=== PATIENT | male | born 1940 | race Two or more races ===

== ENCOUNTER 2017-01-14 11:58 | Emergency (ER) | payer MEDICARE, OTHER ==
[2017-01-14] MEDS ORDERED: Sodium Chloride 0.9% 10 ML Syringe FLUSH PRN (12:02)
[2017-01-14] MEDS ORDERED: Sodium Chloride 0.9% 1,000 ML IV ONE (12:02)
[2017-01-14] MEDS ORDERED: Famotidine 20 MG/2 ML SDV IVPUSH ONE (12:02)
[2017-01-14] MEDS ORDERED: Aspirin 81 MG Tab.Chew PO ONE (12:02)
[2017-01-14] MEDS ORDERED: Sodium Chloride 0.9% 2.5 ML Syringe FLUSH PRN (12:02)
[2017-01-14] MEDS ORDERED: Nitroglycerin 0.4 MG Tab.SL SL PRN (12:06)
[2017-01-14] MEDS ORDERED: Nitroglycerin 0.4 MG Tab.SL ONE (12:19)
[2017-01-14] MEDS ORDERED: Ketorolac 30 MG/ML SDV IVPUSH ONE (12:47)
[2017-01-14 12:51] LABS: CHLORIDE,CL 96 mmol/L (98-110); SODIUM,NA 135 mmol/L (136-146)
--- NOTE | 2017-01-14 12:56 | EDM.PDOC ---
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 Past medical history: As per history of present illness and as reviewed below otherwise noncontributory. Surgical history: As per history of present illness and as reviewed below otherwise noncontributory. Social history: No reported history of drug or alcohol abuse. Family history: As per history of present illness and as reviewed below otherwise noncontributory. Physical exam: Alert and oriented answering questions appropriately HEENT: Atraumatic, normocehpalic, pupils reactive, negative for conjunctival pallor or scleral icterus, mucous membranes moist, throat clear, neck supple, nontender, trachea midline. Lungs: Clear to auscultation, breath sounds equal bilaterally, chest non tender. Heart: S1S2, regular, negative for clicks, rubs, or JVD. EKG normal sinus rhythm some ischemia Abdomen: Soft, nondistended, nontender. Negative for masses or hepatossplenmegaly. Negative for costovertebral tenderness. Pelvis: Stable nontender. Genitourinary: Deferred. Rectal: Deferred Extremities: Atraumatic, negative for cords or calf pain. Positive for pain to the left neck area extending town to posterior shoulder, tender with palpation and relates area of pain Neurovascular unremarkable. Neuro: Awake, alert, oriented. Cranial nerves II through XII unremarkable. Cerebellum unremarkable. Motor and sensory unremarkable throughout. Exam nonfocal. Diagnostics: [] Therapeutics: [] Impression: [Torticollis] Plan: []Home May use a towel roll to his neck while he is sleeping or resting Flexeril prescription [id number] anti-inflammatories such as Advil or Aleve Definitive disposition and diagnosis as appropriate pending reevaluation and review of above. Onset: Today, Sudden Duration: Hour(s): - Related Data Allergies Allergy/AdvReac Type Severity Reaction Status Date / Time No Known Allergies Allergy Verified 01/14/17 12:45 ED ROS GENERAL - Review of Systems Review Of Systems: ROS reveals no pertinent complaints other than HPI. ED EXAM, GENERAL - Physical Exam Exam: See Below (see dictation) Course - Vital Signs Last Recorded V/S: Last Vital Signs Temp Pulse 72 01/14/17 12:30 Resp 20 01/14/17 12:30 BP 101/43 L 01/14/17 12:30 Pulse Ox 100 01/14/17 12:30 - Orders/Labs/Meds Orders: Active Orders 24 hr Category Date Time Status Cardiac Monitoring [RC] . DIRECTED Care 01/14/17 12:02 Active EKG Documentation Completion [RC] STAT Care 01/14/17 12:03 Active Oxygen Therapy [RC] ASDIRECTED Care 01/14/17 12:02 Active Chest 1V Frontal [CR] Stat Exams 01/14/17 12:02 Taken AMYLASE [CHEM] Stat Lab 01/14/17 12:15 Received COMPREHENSIVE METABOLIC PN,CMP [CHEM] Stat Lab 01/14/17 12:15 Received LIPASE [CHEM] Stat Lab 01/14/17 12:15 Received UA W/MICROSCOPIC [URIN] Stat Lab 01/14/17 12:02 Uncollected Sodium Chloride 0.9% [Normal Saline] 1,000 ml Med 01/14/17 12:02 Active IV .Bolus Sodium Chloride 0.9% [Saline Flush] Med 01/14/17 12:02 Active 10 ml FLUSH ASDIRECTED PRN Sodium Chloride 0.9% [Saline Flush] Med 01/14/17 12:02 Active 2.5 ml FLUSH ASDIRECTED PRN Saline Lock Insert [OM.PC] Stat Oth 01/14/17 12:02 Ordered Medication Orders Sodium Chloride (Normal Saline) 1,000 mls @ 999 mls/hr IV .Bolus ONE Stop: 01/14/17 13:02 Last Admin: 01/14/17 12:23 Dose: 999 mls/hr Sodium Chloride (Saline Flush) 10 ml FLUSH ASDIRECTED PRN PRN Reason: Keep Vein Open Sodium Chloride (Saline Flush) 2.5 ml FLUSH ASDIRECTED PRN PRN Reason: Keep Vein Open Labs: Laboratory Tests 01/14/17 01/14/17 01/14/17 Range/Units 12:15 12:15 12:15 WBC 11.53 H (4.0-11.0) K/uL RBC 3.00 L (4.50-5.90) M/uL Hgb 8.9 L (13.0-17.0) g/dL Hct 27.3 L (38.0-50.0) % MCV 91.0 (80.0-98.0) fL MCH 29.7 (27.0-32.0) pg MCHC 32.6 (31.0-37.0) g/dL RDW Std Deviation 52.3 (28.0-62.0) fl RDW Coeff of Mateus 16 H (11.0-15.0) % Plt Count 187 (150-400) K/uL MPV 9.40 (7.40-12.00) fL Neut % (Auto) 41.1 L (48.0-80.0) % Lymph % (Auto) 10.0 L (16.0-40.0) % [place] % (Auto) 6.2 (0.0-15.0) % Eos % (Auto) 42.4 H (0.0-7.0) % Baso % (Auto) 0.3 (0.0-1.5) % Neut # (Auto) 4.7 (1.4-5.7) K/uL Lymph # (Auto) 1.2 (0.6-2.4) K/uL [place] # (Auto) 0.7 (0.0-0.8) K/uL Eos # (Auto) 4.9 H (0.0-0.7) K/uL Baso # (Auto) 0.0 (0.0-0.1) K/uL Nucleated RBC % 0.0 /100WBC Nucleated RBCs # 0 K/uL INR 1.25 H (0.86-1.11) Troponin I < 0.10 (0.0-0.29) NG/ML Meds: Medications Generic Name Dose Route Start Last Admin Trade Name Freq PRN Reason Stop Dose Admin Sodium Chloride 1,000 mls @ 999 mls/hr 01/14/17 12:02 01/14/17 12:23 Normal Saline IV 01/14/17 13:02 999 mls/hr .Bolus ONE Administration Sodium Chloride 10 ml 01/14/17 12:02 Saline Flush FLUSH ASDIRECTED PRN Keep Vein Open Sodium Chloride 2.5 ml 01/14/17 12:02 Saline Flush FLUSH ASDIRECTED PRN Keep Vein Open Discontinued Medications Generic Name Dose Route Start Last Admin Trade Name Mari PRN Reason Stop Dose Admin Aspirin 324 mg 01/14/17 12:02 01/14/17 12:18 Aspirin PO 01/14/17 12:03 324 mg ONETIME ONE Administration Famotidine 20 mg 01/14/17 12:02 01/14/17 12:23 Pepcid IVPUSH 01/14/17 12:03 20 mg ONETIME ONE Administration Nitroglycerin 0.4 mg 01/14/17 12:06 01/14/17 12:20 Nitrostat SL 01/14/17 12:17 0.4 mg Q5M PRN Administration Chest Pain Nitroglycerin Confirm 01/14/17 12:19 01/14/17 12:28 Nitrostat Administered 01/14/17 12:20 Not Given Dose 0.4 mg .ROUTE .STK-MED ONE Departure - Departure Time of Disposition: 12:49 Disposition: Home, Self-Care 01 Condition: Good Clinical Impression: Torticollis Forms: ED Department Discharge Additional Instructions: The following information is given to patients seen in the emergency department who are being discharged to home. This information is to outline your options for follow-up care. We provide all patients seen in our emergency department with a follow-up referral. The need for follow-up, as well as the timing and circumstances, are variable depending upon the specifics of your emergency department visit. If you don't have a primary care physician on staff, we will provide you with a referral. We always advise you to contact your personal physician following an emergency department visit to inform them of the circumstance of the visit and for follow-up with them and/or the need for any referrals to a consulting specialist. The emergency department will also refer you to a specialist when appropriate. This referral assures that you have the opportunity for followup care with a specialist. All of these measure are taken in an effort to provide you with optimal care, which includes your followup. Under all circumstances we always encourage you to contact your private physician who remains a resource for coordinating your care. When calling for followup care, please make the office aware that this follow-up is from your recent emergency room visit. If for any reason you are refused follow-up, please contact the [facility] emergency department at and asked to speak to the emergency department charge nurse. You have a muscle strain on the left side of your neck were given Norflex and Toradol while in the emergency room to help with pain and relax the muscle tissue Prescriptions written for Diclofenac 75 twice a day 7 days Flexeril 10 mg 3 times a day when necessary spasm 1 week - My Orders Last 24 Hours: My Active Orders 01/14/17 12:02 Cardiac Monitoring [RC] . DIRECTED Oxygen Therapy [RC] ASDIRECTED Chest 1V Frontal [CR] Stat UA W/MICROSCOPIC [URIN] Stat Sodium Chloride 0.9% [Normal Saline] 1,000 ml IV .Bolus Sodium Chloride 0.9% [Saline Flush] 10 ml FLUSH ASDIRECTED PRN Sodium Chloride 0.9% [Saline Flush] 2.5 ml FLUSH ASDIRECTED PRN Saline Lock Insert [OM.PC] Stat 01/14/17 12:03 EKG Documentation Completion [RC] STAT 01/14/17 12:15 AMYLASE [CHEM] Stat COMPREHENSIVE METABOLIC PN,CMP [CHEM] Stat LIPASE [CHEM] Stat - Assessment/Plan Last 24 Hours: My Active Orders 01/14/17 12:02 Cardiac Monitoring [RC] . DIRECTED Oxygen Therapy [RC] ASDIRECTED Chest 1V Frontal [CR] Stat UA W/MICROSCOPIC [URIN] Stat Sodium Chloride 0.9% [Normal Saline] 1,000 ml IV .Bolus Sodium Chloride 0.9% [Saline Flush] 10 ml FLUSH ASDIRECTED PRN Sodium Chloride 0.9% [Saline Flush] 2.5 ml FLUSH ASDIRECTED PRN Saline Lock Insert [OM.PC] Stat 01/14/17 12:03 EKG Documentation Completion [RC] STAT 01/14/17 12:15 AMYLASE [CHEM] Stat COMPREHENSIVE METABOLIC PN,CMP [CHEM] Stat LIPASE [CHEM] Stat
[2017-01-14 13:06] VITALS: BP 125/59
--- NOTE | 2017-01-14 13:13 | CR ---
EXAMINATION: Two-view chest (PA and Lateral views). HISTORY: Chest pain. Comparison: 12/27/2016. FINDINGS: The trachea is midline. The heart is borderline in size. There is a left-sided pacemaker noted. The cardiomediastinal silhouette is within normal limits. No pulmonary infiltrates, effusions or pneumot horax. Osseous structures appear unremarkable. Cervical fusion hardware is present. IMPRESSION: No acute cardiopulmonary process.
[2017-01-16] MEDS ORDERED: 50% Dextrose in Water 50 ML Syringe ONE (18:09)
[2017-01-16] MEDS ORDERED: Morphine 2 MG/ML Syringe ONE (22:06)
== END 2017-01-14 13:25 | disposition home or self-care (01) ==
LOC: MW.ED 11:58
DX: M43.6 Torticollis (principal); Z95.0 Presence of cardiac pacemaker
CPT/HCPCS: 36415; 71010; 80053; 82150; 83690; 84484; 85025; 85610; 93005; 96361; 96372; 96374; 96375; 99285; A9270; J1885; J2360; J7040; 99284

== ENCOUNTER 2017-01-16 18:11 | Inpatient (IN) | payer MEDICARE, OTHER ==
[2017-01-16] MEDS ORDERED: Naloxone 0.4 MG/ML Syringe ONE (18:17)
--- NOTE | 2017-01-16 18:22 | EDM.PDOC ---
ED HPI GENERAL MEDICAL PROBLEM - General Stated Complaint: UNABLE TO WAKE UP PT Time Seen by Provider: 01/16/17 18:15 - History of Present Illness INITIAL COMMENTS - FREE TEXT/NARRATIVE: HISTORY AND PHYSICAL: History of present illness: Patient 76-year-old male history of diabetes who presents with altered mental status by paramedics family called for patient who was with decreased level of consciousness basically whole day as last normal well time was yesterday at 6 PM it is unclear from the history by family or paramedics is to why they delayed in transporting him since this presentation was basically the same since earlier today they did state that he has had a stroke in the past she presented similarly which again bagged the question as to what was the gland transport that having been said on arrival here patient follows commands with encouragement he does move all extremities get a blood sugar 61 field IV access was unobtainable on arrival here he was 47 was given 1 amp of D50 he also was given Narcan 0.4 mg IV upon arrival. Patient denies any pain or other concern Review of systems: As per history of present illness and below otherwise all systems reviewed and negative. Past medical history: As per history of present illness and as reviewed below otherwise noncontributory. Surgical history: As per history of present illness and as reviewed below otherwise noncontributory. Social history: No reported history of drug or alcohol abuse. Family history: As per history of present illness and as reviewed below otherwise noncontributory. Physical exam: HEENT: Atraumatic, normocephalic, pupils reactive, negative for conjunctival pallor or scleral icterus, mucous membranes moist, throat clear, neck supple, nontender, trachea midline. Lungs: Clear to auscultation, breath sounds equal bilaterally, chest nontender. Heart: S1S2, regular, negative for clicks, rubs, or JVD. Abdomen: Soft, nondistended, nontender. Negative for masses or hepatosplenomegaly. Negative for costovertebral tenderness. Pelvis: Stable nontender. Genitourinary: Deferred. Rectal: Deferred. Extremities: Atraumatic, negative for cords or calf pain. Neurovascular unremarkable. Neuro: Somnolent does open eyes to command does follow commands speech is slightly unclear patient has limited but grossly nonfocal exam Diagnostics: CBC CMP troponin PT/INR lactic acid and ammonia level urine drug screen blood culture 2 UA chest x-ray CT brain ABG Therapeutics: IV O2 monitor 1 amp D50 IV Narcan 0.4 mg IV Watkins catheter Impression: #1 altered mental status #2 hypoglycemia #3 history of diabetes Definitive disposition and diagnosis as appropriate pending reevaluation and review of above. - Related Data Allergies Allergy/AdvReac Type Severity Reaction Status Date / Time No Known Allergies Allergy Verified 01/16/17 18:56 Home Meds: Home Meds Aspirin [Halfprin] 81 mg PO BRK 01/14/17 [History] Carvedilol 3.125 mg PO BIDMEALS 01/14/17 [History] Clopidogrel [Plavix] 75 mg PO DAILY 01/14/17 [History] Docusate Sodium 100 mg PO BID 01/14/17 [History] Gabapentin [Neurontin] 300 mg PO BID 01/14/17 [History] Insulin Glarg,Human.Rec.Analog [LantUS Solostar] 20 units SUBCUT BEDTIME [History] Isosorbide Mononitrate [Isosorbide Mononitrate ER] 30 mg PO DAILY 01/14/17 [ History] Nitroglycerin 0.4 mg SL Q5M PRN 01/14/17 [History] Pantoprazole [ProTONIX] 40 mg PO ACBREAKFAST 01/14/17 [History] Ranolazine [Ranexa] 500 mg PO BID 01/14/17 [History] Tamsulosin HCl [Flomax] 0.4 mg PO DAILY 01/14/17 [History] Torsemide 40 mg PO DAILY 01/14/17 [History] amLODIPine [Norvasc] 5 mg PO DAILY 01/14/17 [History] atorvaSTATin [Lipitor] 40 mg PO DAILY 01/14/17 [History] levETIRAcetam [Levetiracetam] 250 mg PO BID 01/14/17 [History] Past Medical History HEENT History: Reports: Epistaxis Cardiovascular History: Reports: Other (See Below) Other Cardiovascular History: too unstable for stent placement, refused twice ( 80% blockage) Respiratory History: Reports: None Gastrointestinal History: Reports: Other (See Below) Other Gastrointestinal History: "bad liver" Genitourinary History: Reports: Renal Disease Musculoskeletal History: Reports: Other (See Below) Other Musculoskeletal History: uses cane Endocrine/Metabolic History: Reports: Diabetes, Type I Other Endocrine/Metabolic History: FSBS checks daily Hematologic History: Reports: None Oncologic (Cancer) History: Reports: None Dermatologic History: Reports: None - Infectious Disease History Infectious Disease History: Reports: None - Past Surgical History Head Surgeries/Procedures: Reports: None Cardiovascular Surgical History: Reports: Pacer Other Cardiovascular Surgeries/Procedures: daughter states pacer has not worked for 4 years now Social & Family History - Family History Family Medical History: Noncontributory - Tobacco Use Smoking Status *Q: Never Smoker Second Hand Smoke Exposure: Yes - Recreational Drug Use Recreational Drug Use: No ED ROS GENERAL - Review of Systems Review Of Systems: ROS reveals no pertinent complaints other than HPI. ED EXAM, GENERAL - Physical Exam Exam: See Below (See dictation) Course - Vital Signs Last Recorded V/S: Last Vital Signs Temp 36.5 C 01/18/17 04:00 Pulse 75 01/17/17 17:14 Resp 15 01/18/17 04:00 BP 120/65 01/18/17 04:00 Pulse Ox 98 01/18/17 04:00 - Orders/Labs/Meds Orders: Medication Orders Bisacodyl (Dulcolax) 10 mg RECTAL DAILY PRN PRN Reason: Constipation Last Admin: 01/16/17 21:06 Dose: 10 mg Carvedilol (Coreg) 3.125 mg PO BIDMEALS [facility] Last Admin: 01/17/17 17:14 Dose: 3.125 mg Gabapentin (Neurontin) 300 mg PO BID [facility] Last Admin: 01/17/17 20:42 Dose: 300 mg Pantoprazole Sodium 40 mg/ (Sodium Chloride) 10 mls @ 300 mls/hr IVPUSH Q24H [facility] Last Admin: 01/17/17 20:42 Dose: 300 mls/hr Infusion: 01/16/17 21:14 Dose: 300 mls/hr Admin: 01/16/17 21:12 Dose: 300 mls/hr Cefepime HCl 2 gm/ Premix 50 mls @ 100 mls/hr IV Q24H [facility] Last Admin: 01/18/17 00:45 Dose: 100 mls/hr Infusion: 01/17/17 01:52 Dose: 100 mls/hr Admin: 01/17/17 01:22 Dose: 100 mls/hr Vancomycin HCl 1 gm/ Sodium (Chloride) 250 mls @ 166 mls/hr IV Q24H [facility] Last Admin: 01/18/17 01:24 Dose: 166 mls/hr Infusion: 01/17/17 03:36 Dose: 166 mls/hr Admin: 01/17/17 02:05 Dose: 166 mls/hr Sodium Chloride (Normal Saline) 1,000 mls @ 125 mls/hr IV ASDIRECTED [facility] Last Admin: 01/17/17 23:35 Dose: 125 mls/hr Infusion: 01/17/17 23:06 Dose: 125 mls/hr Admin: 01/17/17 15:06 Dose: 125 mls/hr Insulin Aspart (Novolog) 0 unit SUBCUT TIDAC [facility] PRN Reason: Protocol Last Admin: 01/17/17 17:15 Dose: 2 units Admin: 01/17/17 12:43 Dose: 2 units Ipratropium [place] (Atrovent) 0.5 mg NEB Q6HRRT [facility] Last Admin: 01/18/17 00:41 Dose: 0.5 mg Admin: 01/17/17 20:21 Dose: 0.5 mg Admin: 01/17/17 11:24 Dose: Admin: 01/17/17 05:46 Dose: 0.5 mg Admin: 01/17/17 01:36 Dose: 0.5 mg Levetiracetam (Keppra) 250 mg PO BID [facility] Last Admin: 01/17/17 20:42 Dose: 250 mg Admin: 01/17/17 10:42 Dose: 250 mg Labs: Laboratory Tests 01/16/17 01/16/17 01/16/17 Range/Units 18:16 18:18 18:18 WBC 8.87 (4.0-11.0) K/uL RBC 3.01 L (4.50-5.90) M/uL Hgb 9.0 L (13.0-17.0) g/dL Hct 27.6 L (38.0-50.0) % MCV 91.7 (80.0-98.0) fL MCH 29.9 (27.0-32.0) pg MCHC 32.6 (31.0-37.0) g/dL RDW Std Deviation 54.5 (28.0-62.0) fl RDW Coeff of Mateus 16 H (11.0-15.0) % Plt Count 190 (150-400) K/uL MPV 9.70 (7.40-12.00) fL Add Manual Diff YES Neutrophils % (Manual) 34 L (48.0-80.0) % Lymphocytes % (Manual) 11 L (16.0-40.0) % Monocytes % (Manual) 7 (0.0-15.0) % Eosinophils % (Manual) 47 H (0.0-7.0) % Basophils % (Manual) 1 (0.0-1.5) % Nucleated RBC % 0.0 /100WBC Absolute Seg Neuts 3.0 Lymphocytes # (Manual) 1.0 Monocytes # (Manual) 0.6 Eosinophils # (Manual) 4.2 Basophils # (Manual) 0 Nucleated RBCs # 0 K/uL INR 1.27 H (0.86-1.11) ABG pH (7.35-7.45) ABG pCO2 (35-45) mmHG ABG pO2 (75-100) mmHG ABG HCO3 (22-26) mEq/L ABG Total CO2 ABG Base Excess (-2.0-2.0) Lactate 0.8 (0.20-2.00) mmol/L Sodium (136-146) mmol/L Potassium (3.5-5.1) mmol/L Chloride (98-110) mmol/L Carbon Dioxide (21-31) mmol/L BUN (6.0-23.0) mg/dL Creatinine (0.6-1.5) mg/dL Est Cr Clr Drug Dosing Estimated GFR (MDRD) ml/min Glucose (60-110) mg/dL Calcium (8.8-10.8) mg/dL Total Bilirubin (0.1-1.5) mg/dL AST (5-40) IU/L ALT (8-54) IU/L Alkaline Phosphatase (40-150) Ammonia (14-68) UG/DL Troponin I (0.0-0.29) NG/ML B-Natriuretic Peptide (<100) PG/ML Total Protein (6.0-8.0) g/dL Albumin (3.4-4.8) g/dL Globulin (2.0-3.5) g/dL Albumin/Globulin Ratio (1.3-2.8) Urine Color Urine Appearance Urine pH (5.0-8.0) Ur Specific Lindsay (1.001-1.035) Urine Protein (NEGATIVE) mg/dL Urine Glucose (UA) (NEGATIVE) mg/dL Urine Ketones (NEGATIVE) mg/dL Urine Occult Blood (NEGATIVE) Urine Nitrite (NEGATIVE) Urine Bilirubin (NEGATIVE) Urine Urobilinogen (<2.0) EU/dL Ur Leukocyte Esterase (NEGATIVE) Urine RBC (0-2/HPF) Urine WBC (0-5/HPF) Ur Epithelial Cells (NONE-FEW) Amorphous Sediment (NEGATIVE) Urine Bacteria (NEGATIVE) Urine Opiates Screen (NEGATIVE) Ur Oxycodone Screen (NEGATIVE) Urine Methadone Screen (NEGATIVE) Ur Barbiturates Screen (NEGATIVE) Ur Phencyclidine Scrn (NEGATIVE) Ur Amphetamine Screen (NEGATIVE) U Methamphetamines Scrn (NEGATIVE) U Benzodiazepines Scrn (NEGATIVE) U Cocaine Metab Screen (NEGATIVE) U Marijuana (THC) Screen (NEGATIVE) Ethyl Alcohol mg/dL 01/16/17 01/16/17 01/16/17 Range/Units 18:18 18:18 18:18 WBC (4.0-11.0) K/uL RBC (4.50-5.90) M/uL Hgb (13.0-17.0) g/dL Hct (38.0-50.0) % MCV (80.0-98.0) fL MCH (27.0-32.0) pg MCHC (31.0-37.0) g/dL RDW Std Deviation (28.0-62.0) fl RDW Coeff of Mateus (11.0-15.0) % Plt Count (150-400) K/uL MPV (7.40-12.00) fL Add Manual Diff Neutrophils % (Manual) (48.0-80.0) % Lymphocytes % (Manual) (16.0-40.0) % Monocytes % (Manual) (0.0-15.0) % Eosinophils % (Manual) (0.0-7.0) % Basophils % (Manual) (0.0-1.5) % Nucleated RBC % /100WBC Absolute Seg Neuts Lymphocytes # (Manual) Monocytes # (Manual) Eosinophils # (Manual) Basophils # (Manual) Nucleated RBCs # K/uL INR (0.86-1.11) ABG pH (7.35-7.45) ABG pCO2 (35-45) mmHG ABG pO2 (75-100) mmHG ABG HCO3 (22-26) mEq/L ABG Total CO2 ABG Base Excess (-2.0-2.0) Lactate (0.20-2.00) mmol/L Sodium 134 L (136-146) mmol/L Potassium 5.5 H (3.5-5.1) mmol/L Chloride 99 (98-110) mmol/L Carbon Dioxide 25 (21-31) mmol/L BUN 51 H (6.0-23.0) mg/dL Creatinine 3.1 H (0.6-1.5) mg/dL Est Cr Clr Drug Dosing TNP Estimated GFR (MDRD) 19.7 ml/min Glucose 49 L (60-110) mg/dL Calcium 9.0 (8.8-10.8) mg/dL Total Bilirubin 0.4 (0.1-1.5) mg/dL AST 13 (5-40) IU/L ALT 8 (8-54) IU/L Alkaline Phosphatase 124 (40-150) Ammonia 81 H (14-68) UG/DL Troponin I < 0.10 (0.0-0.29) NG/ML B-Natriuretic Peptide (<100) PG/ML Total Protein 7.4 (6.0-8.0) g/dL Albumin 3.3 L (3.4-4.8) g/dL Globulin 4.1 H (2.0-3.5) g/dL Albumin/Globulin Ratio 0.8 L (1.3-2.8) Urine Color Urine Appearance Urine pH (5.0-8.0) Ur Specific Lindsay (1.001-1.035) Urine Protein (NEGATIVE) mg/dL Urine Glucose (UA) (NEGATIVE) mg/dL Urine Ketones (NEGATIVE) mg/dL Urine Occult Blood (NEGATIVE) Urine Nitrite (NEGATIVE) Urine Bilirubin (NEGATIVE) Urine Urobilinogen (<2.0) EU/dL Ur Leukocyte Esterase (NEGATIVE) Urine RBC (0-2/HPF) Urine WBC (0-5/HPF) Ur Epithelial Cells (NONE-FEW) Amorphous Sediment (NEGATIVE) Urine Bacteria (NEGATIVE) Urine Opiates Screen (NEGATIVE) Ur Oxycodone Screen (NEGATIVE) Urine Methadone Screen (NEGATIVE) Ur Barbiturates Screen (NEGATIVE) Ur Phencyclidine Scrn (NEGATIVE) Ur Amphetamine Screen (NEGATIVE) U Methamphetamines Scrn (NEGATIVE) U Benzodiazepines Scrn (NEGATIVE) U Cocaine Metab Screen (NEGATIVE) U Marijuana (THC) Screen (NEGATIVE) Ethyl Alcohol mg/dL 01/16/17 01/16/17 01/16/17 Range/Units 18:18 18:18 18:20 WBC (4.0-11.0) K/uL RBC (4.50-5.90) M/uL Hgb (13.0-17.0) g/dL Hct (38.0-50.0) % MCV (80.0-98.0) fL MCH (27.0-32.0) pg MCHC (31.0-37.0) g/dL RDW Std Deviation (28.0-62.0) fl RDW Coeff of Mateus (11.0-15.0) % Plt Count (150-400) K/uL MPV (7.40-12.00) fL Add Manual Diff Neutrophils % (Manual) (48.0-80.0) % Lymphocytes % (Manual) (16.0-40.0) % Monocytes % (Manual) (0.0-15.0) % Eosinophils % (Manual) (0.0-7.0) % Basophils % (Manual) (0.0-1.5) % Nucleated RBC % /100WBC Absolute Seg Neuts Lymphocytes # (Manual) Monocytes # (Manual) Eosinophils # (Manual) Basophils # (Manual) Nucleated RBCs # K/uL INR (0.86-1.11) ABG pH 7.352 (7.35-7.45) ABG pCO2 57 H (35-45) mmHG ABG pO2 51 L (75-100) mmHG ABG HCO3 32 H (22-26) mEq/L ABG Total CO2 30.5 ABG Base Excess 5.8 H (-2.0-2.0) Lactate (0.20-2.00) mmol/L Sodium (136-146) mmol/L Potassium (3.5-5.1) mmol/L Chloride (98-110) mmol/L Carbon Dioxide (21-31) mmol/L BUN (6.0-23.0) mg/dL Creatinine (0.6-1.5) mg/dL Est Cr Clr Drug Dosing Estimated GFR (MDRD) ml/min Glucose (60-110) mg/dL Calcium (8.8-10.8) mg/dL Total Bilirubin (0.1-1.5) mg/dL AST (5-40) IU/L ALT (8-54) IU/L Alkaline Phosphatase (40-150) Ammonia (14-68) UG/DL Troponin I (0.0-0.29) NG/ML B-Natriuretic Peptide 795 H (<100) PG/ML Total Protein (6.0-8.0) g/dL Albumin (3.4-4.8) g/dL Globulin (2.0-3.5) g/dL Albumin/Globulin Ratio (1.3-2.8) Urine Color Urine Appearance Urine pH (5.0-8.0) Ur Specific Lindsay (1.001-1.035) Urine Protein (NEGATIVE) mg/dL Urine Glucose (UA) (NEGATIVE) mg/dL Urine Ketones (NEGATIVE) mg/dL Urine Occult Blood (NEGATIVE) Urine Nitrite (NEGATIVE) Urine Bilirubin (NEGATIVE) Urine Urobilinogen (<2.0) EU/dL Ur Leukocyte Esterase (NEGATIVE) Urine RBC (0-2/HPF) Urine WBC (0-5/HPF) Ur Epithelial Cells (NONE-FEW) Amorphous Sediment (NEGATIVE) Urine Bacteria (NEGATIVE) Urine Opiates Screen (NEGATIVE) Ur Oxycodone Screen (NEGATIVE) Urine Methadone Screen (NEGATIVE) Ur Barbiturates Screen (NEGATIVE) Ur Phencyclidine Scrn (NEGATIVE) Ur Amphetamine Screen (NEGATIVE) U Methamphetamines Scrn (NEGATIVE) U Benzodiazepines Scrn (NEGATIVE) U Cocaine Metab Screen (NEGATIVE) U Marijuana (THC) Screen (NEGATIVE) Ethyl Alcohol < 10.0 mg/dL 01/16/17 01/16/17 Range/Units 18:40 18:40 WBC (4.0-11.0) K/uL RBC (4.50-5.90) M/uL Hgb (13.0-17.0) g/dL Hct (38.0-50.0) % MCV (80.0-98.0) fL MCH (27.0-32.0) pg MCHC (31.0-37.0) g/dL RDW Std Deviation (28.0-62.0) fl RDW Coeff of Mateus (11.0-15.0) % Plt Count (150-400) K/uL MPV (7.40-12.00) fL Add Manual Diff Neutrophils % (Manual) (48.0-80.0) % Lymphocytes % (Manual) (16.0-40.0) % Monocytes % (Manual) (0.0-15.0) % Eosinophils % (Manual) (0.0-7.0) % Basophils % (Manual) (0.0-1.5) % Nucleated RBC % /100WBC Absolute Seg Neuts Lymphocytes # (Manual) Monocytes # (Manual) Eosinophils # (Manual) Basophils # (Manual) Nucleated RBCs # K/uL INR (0.86-1.11) ABG pH (7.35-7.45) ABG pCO2 (35-45) mmHG ABG pO2 (75-100) mmHG ABG HCO3 (22-26) mEq/L ABG Total CO2 ABG Base Excess (-2.0-2.0) Lactate (0.20-2.00) mmol/L Sodium (136-146) mmol/L Potassium (3.5-5.1) mmol/L Chloride (98-110) mmol/L Carbon Dioxide (21-31) mmol/L BUN (6.0-23.0) mg/dL Creatinine (0.6-1.5) mg/dL Est Cr Clr Drug Dosing Estimated GFR (MDRD) ml/min Glucose (60-110) mg/dL Calcium (8.8-10.8) mg/dL Total Bilirubin (0.1-1.5) mg/dL AST (5-40) IU/L ALT (8-54) IU/L Alkaline Phosphatase (40-150) Ammonia (14-68) UG/DL Troponin I (0.0-0.29) NG/ML B-Natriuretic Peptide (<100) PG/ML Total Protein (6.0-8.0) g/dL Albumin (3.4-4.8) g/dL Globulin (2.0-3.5) g/dL Albumin/Globulin Ratio (1.3-2.8) Urine Color YELLOW Urine Appearance HAZY Urine pH 5.5 (5.0-8.0) Ur Specific Lindsay 1.020 (1.001-1.035) Urine Protein TRACE (NEGATIVE) mg/dL Urine Glucose (UA) NEGATIVE (NEGATIVE) mg/dL Urine Ketones NEGATIVE (NEGATIVE) mg/dL Urine Occult Blood NEGATIVE (NEGATIVE) Urine Nitrite NEGATIVE (NEGATIVE) Urine Bilirubin NEGATIVE (NEGATIVE) Urine Urobilinogen 0.2 (<2.0) EU/dL Ur Leukocyte Esterase NEGATIVE (NEGATIVE) Urine RBC 0-3 (0-2/HPF) Urine WBC 0-1 (0-5/HPF) Ur Epithelial Cells NOT SEEN (NONE-FEW) Amorphous Sediment FEW (NEGATIVE) Urine Bacteria FEW (NEGATIVE) Urine Opiates Screen NEGATIVE (NEGATIVE) Ur Oxycodone Screen NEGATIVE (NEGATIVE) Urine Methadone Screen NEGATIVE (NEGATIVE) Ur Barbiturates Screen NEGATIVE (NEGATIVE) Ur Phencyclidine Scrn NEGATIVE (NEGATIVE) Ur Amphetamine Screen NEGATIVE (NEGATIVE) U Methamphetamines Scrn NEGATIVE (NEGATIVE) U Benzodiazepines Scrn NEGATIVE (NEGATIVE) U Cocaine Metab Screen NEGATIVE (NEGATIVE) U Marijuana (THC) Screen NEGATIVE (NEGATIVE) Ethyl Alcohol mg/dL Meds: Medications Generic Name Dose Route Start Last Admin Trade Name Freq PRN Reason Stop Dose Admin Bisacodyl 10 mg 01/16/17 20:59 01/16/17 21:06 Dulcolax RECTAL 10 mg DAILY PRN Administration Constipation Carvedilol 3.125 mg 01/17/17 17:00 01/17/17 17:14 Coreg PO 3.125 mg BIDMEALS YESICA Administration Gabapentin 300 mg 01/17/17 21:00 01/17/17 20:42 Neurontin PO 300 mg BID YES[facility] Administration Pantoprazole Sodium 40 mg/ 10 mls @ 300 mls/hr 01/16/17 20:30 01/17/17 20:42 Sodium Chloride IVPUSH 300 mls/hr Q24H [facility] Administration Cefepime HCl 2 gm/ Premix 50 mls @ 100 mls/hr 01/17/17 01:15 01/18/17 00:45 IV 100 mls/hr Q24H [facility] Administration Vancomycin HCl 1 gm/ Sodium 250 mls @ 166 mls/hr 01/17/17 01:30 01/18/17 01: 24 Chloride IV 166 mls/hr Q24H [facility] Administration Sodium Chloride 1,000 mls @ 125 mls/hr 01/17/17 14:30 01/17/17 23:35 Normal Saline IV 125 mls/hr ASDIRECTED [facility] Administration Insulin Aspart 0 unit 01/17/17 11:30 01/17/17 17:15 Novolog SUBCUT 2 units [facility] Administration Protocol Ipratropium [place] 0.5 mg 01/17/17 01:16 01/18/17 00:41 Atrovent NEB 0.5 mg Q6HRRT [facility] Administration Levetiracetam 250 mg 01/17/17 10:30 01/17/17 20:42 Keppra PO 250 mg BID [facility] Administration Discontinued Medications Generic Name Dose Route Start Last Admin Trade Name Mari PRN Reason Stop Dose Admin Albuterol/Ipratropium 3 ml 01/17/17 01:05 01/17/17 01:15 Duoneb 3.0-0.5 Mg/3 Ml NEB Not Given Q6HRRT [facility] Dextrose/Water 50 ml 01/16/17 18:25 01/16/17 18:15 Dextrose 50% In Water IVPUSH 01/16/17 18:26 50 ml ONETIME ONE Administration Dextrose/Water 50 ml 01/17/17 00:26 01/17/17 00:36 Dextrose 50% In Water IVPUSH 01/17/17 00:27 50 ml ONETIME ONE Administration Haloperidol Lactate 5 mg 01/18/17 04:30 01/18/17 04:51 Haldol IM 01/18/17 04:31 5 mg ONETIME ONE Administration Sodium Chloride 1,000 mls @ 125 mls/hr 01/16/17 20:15 01/16/17 21:04 Normal Saline IV 125 mls/hr ASDIRECTED [facility] Administration Dextrose/Sodium Chloride 1,000 mls @ 100 mls/hr 01/17/17 00:30 01/17/17 12:25 Dextrose 5%-Normal Saline IV 100 mls/hr ASDIRECTED [facility] Administration Insulin Aspart 0 unit 01/17/17 17:00 Novolog SUBCUT [facility] Protocol Insulin Aspart 0 unit 01/17/17 12:31 Novolog SUBCUT [facility] Protocol Naloxone HCl Confirm 01/16/17 18:17 01/16/17 18:54 Narcan Administered 01/16/17 18:18 Not Given Dose 0.4 mg .ROUTE .STK-MED ONE Naloxone HCl 0.4 mg 01/16/17 18:48 01/16/17 18:19 Narcan IVPUSH 01/16/17 18:49 0.4 mg ONETIME ONE Administration Vancomycin HCl 1 dose 01/17/17 01:13 01/17/17 07:34 Pharmacy To Dose - Vancomycin .XX 01/17/17 01:14 Not Given ONETIME ONE Departure - Departure Time of Disposition: 19:00 Disposition: Admitted As Inpatient 66 Condition: Serious Clinical Impression: Altered mental status - Discharge Information
[2017-01-16] MEDS ORDERED: 50% Dextrose in Water 50 ML Syringe IVPUSH ONE (18:25)
[2017-01-16 18:47] LABS: CHLORIDE,CL 99 mmol/L (98-110); SODIUM,NA 134 mmol/L (136-146)
[2017-01-16] MEDS ORDERED: Naloxone 0.4 MG/ML Syringe IVPUSH ONE (18:48)
[2017-01-16] MEDS ORDERED: Sodium Chloride 0.9% 1,000 ML IV SCH (20:15)
--- NOTE | 2017-01-16 20:25 | PCM.HP ---
H&P History of Present Illness - History of Present Illness Initial Comments - Free Text/Narative: 76 yo male with pmh CHF, DM, chronic kidney disease, CAD, COPD, CVA, seizure disorder, and MEREDITH who presents with altered mental status. Patient was hospitalized last month in [place] with heart, kidney, and liver failure. During that hospitalization he was deemed to high risk for cardiac stenting according to family. He and his recently moved to [place] and is being cared for by his daughter. He recently was prescribed a pain pill and muscle relaxer for his back pain. He had been doing better this week after seeing Dr. Julian in the clinic. However last night family noticed he was becoming lethargic and having slurred speech which was what he was like at discharge from [place]. This morning was hardly able to hold a cup of water. He slept all day and this evening family notice he was difficult to arouse and would twitch. Patient does not use alcohol but he does have a history of heavy alcohol use in past and thinks he has cirrhosis. Family reports frequent bloody noses and blood in stool. Patients blood glucose this morning was 100 according to family, It was 43 in ED and patient received amp of d50.and narcan with outmuch change in mental status. - Related Data Allergies/Adverse Reactions: Allergies Allergy/AdvReac Type Severity Reaction Status Date / Time No Known Allergies Allergy Verified 01/16/17 18:56 Home Medications: Home Meds Aspirin [Halfprin] 81 mg PO BRK 01/14/17 [History] Carvedilol 3.125 mg PO BIDMEALS 01/14/17 [History] Clopidogrel [Plavix] 75 mg PO DAILY 01/14/17 [History] Docusate Sodium 100 mg PO BID 01/14/17 [History] Gabapentin [Neurontin] 300 mg PO BID 01/14/17 [History] Insulin Glarg,Human.Rec.Analog [LantUS Solostar] 20 units SUBCUT BEDTIME [History] Isosorbide Mononitrate [Isosorbide Mononitrate ER] 30 mg PO DAILY 01/14/17 [ History] Nitroglycerin 0.4 mg SL Q5M PRN 01/14/17 [History] Pantoprazole [ProTONIX] 40 mg PO ACBREAKFAST 01/14/17 [History] Ranolazine [Ranexa] 500 mg PO BID 01/14/17 [History] Tamsulosin HCl [Flomax] 0.4 mg PO DAILY 01/14/17 [History] Torsemide 40 mg PO DAILY 01/14/17 [History] amLODIPine [Norvasc] 5 mg PO DAILY 01/14/17 [History] atorvaSTATin [Lipitor] 40 mg PO DAILY 01/14/17 [History] levETIRAcetam [Levetiracetam] 250 mg PO BID 01/14/17 [History] Past Medical History HEENT History: Reports: Epistaxis Other HEENT History: duval's esophagus; Sick Sinus syndrome Cardiovascular History: Reports: High Cholesterol, Hypertension, Other (See Below) Other Cardiovascular History: too unstable for stent placement, refused twice ( 80% blockage); heart attack in September 2016; angioplasty Respiratory History: Reports: None Gastrointestinal History: Reports: Other (See Below) Other Gastrointestinal History: "bad liver"; ALEXSANDER and CKD; hyperkalemia Genitourinary History: Reports: Renal Disease Musculoskeletal History: Reports: Other (See Below) Other Musculoskeletal History: uses cane Neurological History: Reports: Seizure Endocrine/Metabolic History: Reports: Diabetes, Type I Other Endocrine/Metabolic History: FSBS checks daily Hematologic History: Reports: None Oncologic (Cancer) History: Reports: None Dermatologic History: Reports: None Other Dermatologic History: local edema - Infectious Disease History Infectious Disease History: Reports: None - Past Surgical History Head Surgeries/Procedures: Reports: None HEENT Surgical History: Reports: None Cardiovascular Surgical History: Reports: Pacer Other Cardiovascular Surgeries/Procedures: daughter states pacer has not worked for 4 years now GI Surgical History: Reports: Colonoscopy Other Musculoskeletal Surgeries/Procedures:: spine surgery Social & Family History - Family History Family Medical History: Noncontributory - Tobacco Use Smoking Status *Q: Never Smoker Second Hand Smoke Exposure: No - Caffeine Use Caffeine Use: Reports: Coffee, Soda Caffeine Use Comment: 1-2drinks/day - Recreational Drug Use Recreational Drug Use: No H&P Review of Systems - Review of Systems: Review Of Systems: Unable To Obtain Exam - Exam Exam: See Below - Vital Signs Vital Signs: Last Vital Signs Temp 36.3 C 01/16/17 18:12 Pulse 78 01/16/17 18:56 Resp 20 01/16/17 18:56 BP 141/76 H 01/16/17 18:56 Pulse Ox 99 01/16/17 18:56 Weight: 84.8 kg - Exam General: Sedated Lungs: Clear to Auscultation, Normal Respiratory Effort Cardiovascular: Regular Rate, Regular Rhythm Abdomen: Normal Bowel Sounds, Soft Extremities: No: Edema Skin: Warm, Dry, Intact Neurological: Other (patient moves all four extremites purposfully, he does not follow commands, he does not open eyes or answer questions, but will speak at times such as stating he needs to go to the bathroom) - Patient Data Result Diagrams: 01/18/17 05:07 01/18/17 05:07 *Q Meaningful Use (ADM) - VTE *Q VTE Criteria *Q: - Stroke *Q Stroke Criteria *Q: - AMI *Q AMI Criteria *Q: Problem List Initiated/Reviewed/Updated: Yes Orders Last 24hrs: Active Orders 24 hr Category Date Time Status Antiembolic Devices [RC] PER UNIT ROUTINE Care 01/16/17 20:14 Ordered BIPAP [RT BiPAP/CPAP] [RC] ASDIRECTED Care 01/16/17 20:15 Ordered Blood Glucose Check, Bedside [RC] Q6HR Care 01/16/17 20:04 Ordered Intake and Output [RC] QSHIFT Care 01/16/17 20:13 Ordered Oxygen Therapy [RC] PRN Care 01/16/17 20:04 Ordered VTE/DVT Education [RC] PER UNIT ROUTINE Care 01/16/17 20:04 Ordered Vital Signs [RC] Q4H Care 01/16/17 20:04 Ordered Nothing per Oral Now Diet [DIET] Diet 01/16/17 Breakfast Ordered CBC WITH AUTO DIFF [HEME] AM Lab 01/17/17 05:11 Ordered CBC WITH AUTO DIFF [HEME] AM Lab 01/18/17 05:11 Ordered COMPREHENSIVE METABOLIC PN,CMP [CHEM] AM Lab 01/17/17 05:11 Ordered COMPREHENSIVE METABOLIC PN,CMP [CHEM] AM Lab 01/18/17 05:11 Ordered Sodium Chloride 0.9% @ 125 MLS/HR (1000ml) Med 01/16/17 20:15 Ordered Sodium Chloride 0.9% [Normal Saline] 1,000 ml IV ASDIRECTED Sequential Compression Device [OM.PC] Per Unit Routine Oth 01/16/17 20:13 Ordered Resuscitation Status Routine Resus Stat 01/16/17 20:04 Ordered Medication Orders Sodium Chloride (Normal Saline) 1,000 mls @ 125 mls/hr IV ASDIRECTED [facility] Assessment/Plan Comment:: 76 yo male with pmh of CHF, CKD, MEREDITH, COPD, and DM who presents with altered mental status. His altered mental status is likely multifactorial with a large differential including, acute kidney failure from over diuresis, polypharmacy, hypoglycemia, hypercapnia, hepatic encephalopathy, and stroke. Will monitor in ICU. Will hydrate with IV fluids and hold sedating medication.
[2017-01-16] MEDS ORDERED: Bisacodyl 10 MG Supp RECTAL PRN (20:59)
[2017-01-16] MEDS: Pantoprazole 40 MG in Sodium Chloride 0.9% 10 ML IVPUSH SCH (21:12)
[2017-01-17] MEDS ORDERED: 50% Dextrose in Water 50 ML Syringe IVPUSH ONE (00:26)
[2017-01-17] MEDS: Dextrose 5%-0.9% NaCl 1,000 ML IV SCH ×2 (00:37→12:25)
[2017-01-17] MEDS ORDERED: Albuterol/Ipratropium 3.0-0.5 MG/3 ML Neb Soln NEB SCH (01:05)
[2017-01-17] MEDS: Cefepime 2 GM in Premix Bag 1 BAG IV SCH (01:22)
[2017-01-17] MEDS: Ipratropium 0.02% 0.5 MG/2.5 ML Neb Soln NEB SCH ×4 (01:36→20:21)
[2017-01-17] MEDS: levETIRAcetam 500 MG Tab PO SCH ×2 (10:42→20:42)
[2017-01-17] MEDS ORDERED: Insulin Aspart 100 Units/ML 3 ML Pen SUBCUT SCH ×2 (12:31→17:00)
[2017-01-17] MEDS: Insulin Aspart 100 Units/ML 3 ML Pen SUBCUT SCH ×2 (12:43→17:15)
--- NOTE | 2017-01-17 13:14 | PCM.PN ---
- General Info Date of Service: 01/17/17 Subjective Update: His mental status has improved. His blood sugar this morning imrpoved after adding D5NS. He is more alert, difficult to understand due to his accent. He does not have slurred speech. Telemetry: NSR. He has a weathers in place with 650 ml in the bag. Nurses have noted streaks of blood in stool. He improved on BIPAP. He does not have fever, sob, chest pain. He is on 2 liters of [place] oxygen. - Review of Systems General: Reports: Fatigue HEENT: Reports: no symptoms Pulmonary: Reports: shortness of breath, cough Cardiovascular: Reports: No Symptoms Gastrointestinal: Reports: No symptoms Musculoskeletal: Reports: no symptoms Skin: Reports: no symptoms Neurological: Reports: No Symptoms Psychiatric: Reports: no symptoms - Patient Data Vitals - most recent: Last Vital Signs Temp 97.2 F 01/17/17 08:00 Pulse 68 01/16/17 20:10 Resp 13 01/17/17 12:00 BP 131/68 01/17/17 12:00 Pulse Ox 100 01/17/17 12:00 Weight - most recent: 77.3 kg I&O - last 24 hours: Intake & Output 01/16/17 01/17/17 01/17/17 22:59 06:59 14:59 Intake Total 10 725 950 Output Total 270 650 Balance -260 75 950 Lab Results last 24 hrs: Laboratory Results - last 24 hr 01/16/17 01/17/17 01/17/17 Range/Units 20:29 00:18 01:50 WBC (4.0-11.0) K/uL RBC (4.50-5.90) M/uL Hgb (13.0-17.0) g/dL Hct (38.0-50.0) % MCV (80.0-98.0) fL MCH (27.0-32.0) pg MCHC (31.0-37.0) g/dL RDW Std Deviation (28.0-62.0) fl RDW Coeff of Mateus (11.0-15.0) % Plt Count (150-400) K/uL MPV (7.40-12.00) fL Neut % (Auto) (48.0-80.0) % Lymph % (Auto) (16.0-40.0) % [place]irie % (Auto) (0.0-15.0) % Eos % (Auto) (0.0-7.0) % Baso % (Auto) (0.0-1.5) % Neut # (Auto) (1.4-5.7) K/uL Lymph # (Auto) (0.6-2.4) K/uL [place] # (Auto) (0.0-0.8) K/uL Eos # (Auto) (0.0-0.7) K/uL Baso # (Auto) (0.0-0.1) K/uL Nucleated RBC % /100WBC Nucleated RBCs # K/uL VBG pH (7.31-7.41) VBG pCO2 (35-45) mmHG VBG pO2 (30-40) mmHG VBG HCO3 (22-30) mEq/L VBG Total CO2 (41-51) mmol/L VBG Base Excess (-3.0-3.0) Sodium (136-146) mmol/L Potassium (3.5-5.1) mmol/L Chloride (98-110) mmol/L Carbon Dioxide (21-31) mmol/L BUN (6.0-23.0) mg/dL Creatinine (0.6-1.5) mg/dL Est Cr Clr Drug Dosing mL/min Estimated GFR (MDRD) ml/min Glucose (60-110) mg/dL POC Glucose 90 59 L 155 H (60-110) mg/dL Calcium (8.8-10.8) mg/dL Total Bilirubin (0.1-1.5) mg/dL AST (5-40) IU/L ALT (8-54) IU/L Alkaline Phosphatase (40-150) Total Protein (6.0-8.0) g/dL Albumin (3.4-4.8) g/dL Globulin (2.0-3.5) g/dL Albumin/Globulin Ratio (1.3-2.8) 01/17/17 01/17/17 01/17/17 Range/Units 03:49 05:52 06:01 WBC 7.86 (4.0-11.0) K/uL RBC 3.08 L (4.50-5.90) M/uL Hgb 9.1 L (13.0-17.0) g/dL Hct 28.3 L (38.0-50.0) % MCV 91.9 (80.0-98.0) fL MCH 29.5 (27.0-32.0) pg MCHC 32.2 (31.0-37.0) g/dL RDW Std Deviation 54.8 (28.0-62.0) fl RDW Coeff of Mateus 16 H (11.0-15.0) % Plt Count 169 (150-400) K/uL MPV 9.70 (7.40-12.00) fL Neut % (Auto) 34.2 L (48.0-80.0) % Lymph % (Auto) 11.5 L (16.0-40.0) % Prairie % (Auto) 6.4 (0.0-15.0) % Eos % (Auto) 47.6 H (0.0-7.0) % Baso % (Auto) 0.3 (0.0-1.5) % Neut # (Auto) 2.7 (1.4-5.7) K/uL Lymph # (Auto) 0.9 (0.6-2.4) K/uL [place] # (Auto) 0.5 (0.0-0.8) K/uL Eos # (Auto) 3.7 H (0.0-0.7) K/uL Baso # (Auto) 0.0 (0.0-0.1) K/uL Nucleated RBC % 0.0 /100WBC Nucleated RBCs # 0 K/uL VBG pH 7.43 H (7.31-7.41) VBG pCO2 45 (35-45) mmHG VBG pO2 170 H (30-40) mmHG VBG HCO3 30 (22-30) mEq/L VBG Total CO2 28 L (41-51) mmol/L VBG Base Excess 5.4 H (-3.0-3.0) Sodium (136-146) mmol/L Potassium (3.5-5.1) mmol/L Chloride (98-110) mmol/L Carbon Dioxide (21-31) mmol/L BUN (6.0-23.0) mg/dL Creatinine (0.6-1.5) mg/dL Est Cr Clr Drug Dosing mL/min Estimated GFR (MDRD) ml/min Glucose (60-110) mg/dL POC Glucose 133 H (60-110) mg/dL Calcium (8.8-10.8) mg/dL Total Bilirubin (0.1-1.5) mg/dL AST (5-40) IU/L ALT (8-54) IU/L Alkaline Phosphatase (40-150) Total Protein (6.0-8.0) g/dL Albumin (3.4-4.8) g/dL Globulin (2.0-3.5) g/dL Albumin/Globulin Ratio (1.3-2.8) 01/17/17 01/17/17 01/17/17 Range/Units 06:01 09:27 12:03 WBC (4.0-11.0) K/uL RBC (4.50-5.90) M/uL Hgb (13.0-17.0) g/dL Hct (38.0-50.0) % MCV (80.0-98.0) fL MCH (27.0-32.0) pg MCHC (31.0-37.0) g/dL RDW Std Deviation (28.0-62.0) fl RDW Coeff of Mateus (11.0-15.0) % Plt Count (150-400) K/uL MPV (7.40-12.00) fL Neut % (Auto) (48.0-80.0) % Lymph % (Auto) (16.0-40.0) % [place]irie % (Auto) (0.0-15.0) % Eos % (Auto) (0.0-7.0) % Baso % (Auto) (0.0-1.5) % Neut # (Auto) (1.4-5.7) K/uL Lymph # (Auto) (0.6-2.4) K/uL [place] # (Auto) (0.0-0.8) K/uL Eos # (Auto) (0.0-0.7) K/uL Baso # (Auto) (0.0-0.1) K/uL Nucleated RBC % /100WBC Nucleated RBCs # K/uL VBG pH (7.31-7.41) VBG pCO2 (35-45) mmHG VBG pO2 (30-40) mmHG VBG HCO3 (22-30) mEq/L VBG Total CO2 (41-51) mmol/L VBG Base Excess (-3.0-3.0) Sodium 135 L (136-146) mmol/L Potassium 4.9 (3.5-5.1) mmol/L Chloride 100 (98-110) mmol/L Carbon Dioxide 25 (21-31) mmol/L BUN 51 H (6.0-23.0) mg/dL Creatinine 2.8 H (0.6-1.5) mg/dL Est Cr Clr Drug Dosing 17.20 mL/min Estimated GFR (MDRD) 22.1 ml/min Glucose 144 H (60-110) mg/dL POC Glucose 130 H 180 H (60-110) mg/dL Calcium 8.6 L (8.8-10.8) mg/dL Total Bilirubin 0.5 (0.1-1.5) mg/dL AST 11 (5-40) IU/L ALT 9 (8-54) IU/L Alkaline Phosphatase 125 (40-150) Total Protein 6.7 (6.0-8.0) g/dL Albumin 3.2 L (3.4-4.8) g/dL Globulin 3.5 (2.0-3.5) g/dL Albumin/Globulin Ratio 0.9 L (1.3-2.8) Uriel Results last 24 hrs: Microbiology 01/17/17 12:37 Stool Occult Blood (URIEL) - Final Stool / Feces POSITIVE OCCULT BLOOD Med Orders - Current: Current Medications Bisacodyl (Dulcolax) 10 mg RECTAL DAILY PRN PRN Reason: Constipation Last Admin: 01/16/17 21:06 Dose: 10 mg Carvedilol (Coreg) 3.125 mg PO BIDMEALS [facility] Gabapentin (Neurontin) 300 mg PO BID YESICA Pantoprazole Sodium 40 mg/ (Sodium Chloride) 10 mls @ 300 mls/hr IVPUSH Q24H [facility] Last Admin: 01/16/17 21:12 Dose: 300 mls/hr Dextrose/Sodium Chloride (Dextrose 5%-Normal Saline) 1,000 mls @ 100 mls/hr IV ASDIRECTED [facility] Last Admin: 01/17/17 12:25 Dose: 100 mls/hr Cefepime HCl 2 gm/ Premix 50 mls @ 100 mls/hr IV Q24H [facility] Last Admin: 01/17/17 01:22 Dose: 100 mls/hr Vancomycin HCl 1 gm/ Sodium (Chloride) 250 mls @ 166 mls/hr IV Q24H [facility] Last Admin: 01/17/17 02:05 Dose: 166 mls/hr Insulin Aspart (Novolog) [facility] PRN Reason: Protocol Last Admin: 01/17/17 12:43 Dose: 2 units Ipratropium [place] (Atrovent) 0.5 mg NEB Q6HRRT [facility] Last Admin: 01/17/17 11:24 Dose: Not Given Levetiracetam (Keppra) 250 mg PO BID [facility] Last Admin: 01/17/17 10:42 Dose: 250 mg Discontinued Medications Albuterol/Ipratropium (Duoneb 3.0-0.5 Mg/3 Ml) 3 ml NEB Q6HRRT [facility] Last Admin: 01/17/17 01:15 Dose: Not Given Dextrose/Water (Dextrose 50% In Water) 50 ml IVPUSH ONETIME ONE Stop: 01/16/17 18:26 Last Admin: 01/16/17 18:15 Dose: 50 ml Dextrose/Water (Dextrose 50% In Water) 50 ml IVPUSH ONETIME ONE Stop: 01/17/17 00:27 Last Admin: 01/17/17 00:36 Dose: 50 ml Sodium Chloride (Normal Saline) 1,000 mls @ 125 mls/hr IV ASDIRECTED [facility] Last Admin: 01/16/17 21:04 Dose: 125 mls/hr Insulin Aspart (Novolog) 0 unit SUBCUT [facility] PRN Reason: Protocol Insulin Aspart (Novolog) 0 unit SU[facility]UT [facility] PRN Reason: Protocol Naloxone HCl (Narcan) Confirm Administered Dose 0.4 mg .ROUTE .STK-MED ONE Stop: 01/16/17 18:18 Last Admin: 01/16/17 18:54 Dose: Not Given Naloxone HCl (Narcan) 0.4 mg IVPUSH ONETIME ONE Stop: 01/16/17 18:49 Last Admin: 01/16/17 18:19 Dose: 0.4 mg Vancomycin HCl (Pharmacy To Dose - Vancomycin) 1 dose .XX ONETIME ONE Stop: 01/17/17 01:14 Last Admin: 01/17/17 07:34 Dose: Not Given - Exam General: alert, oriented, cooperative HEENT: Pupils equal, EOMI Neck: supple, trachea midline Lungs: Decreased breath sounds Cardiovascular: Regular Rate, Regular Rhythm Abdomen: bowel sounds present, soft (Male) Exam: Other (Rectal Exam: no masses or gross blood noted. ) Back Exam: Normal Inspection Extremities: edema (bilateral trace edema) Peripheral Pulses: 2+: Dorsalis Pedis (L), Dorsalis Pedis (R) Skin: warm, dry, intact Neurological: no new focal deficit Psy/Mental Status: alert, normal affect, normal mood - Problem List Review Problem List Initiated/Reviewed/Updated: Yes - My Orders Last 24 Hours: My Active Orders 01/17/17 11:30 Insulin Aspart [NovoLOG] 0 unit SUBCUT TIDAC 01/17/17 13:12 IRON,FE [CHEM] Routine IRON/TIBC [CHEM] Routine 01/17/17 Lunch ADA Diabetic [[place] [employer] Diet] [DIET] - Plan Plan:: 76 yo male with pmh of CHF, CKD, MEREDITH, COPD, and DM who presents with altered mental status. His altered mental status is likely multifactorial with a large differential including, acute kidney failure from over diuresis, polypharmacy, hypoglycemia, hypercapnia, hepatic encephalopathy. Hypoglycemia: Improved. change D5 normal saline to Normal Saline. Advance to ADA diet. He is tolerating po intake. Left lower lobe pneumonia: Suspected GM negative respiratory infection: continue maxipime. on 2L of [place] oxygen. ALEXSANDER: improving creatinine 3.1 to 2.8 Anemia: Hb 9.1. check iron studies today. Hemocult done today. COPD: on atrovent neb. Diabetes type 2 uncontrolled: on insulin sliding scale medium dose. GI prophylaxis: IV protonix DVT prophylaxis: SCDs boots secondary to positive Hemoccult. Plavix held. Seizures: Restart his home medications Keppra, neurontin. CAD: Restart his home medication Coreg bowel regimen: on dulculox PA prn. Dispo 1-2 days pending improvement.
[2017-01-17] MEDS: Sodium Chloride 0.9% 1,000 ML IV SCH ×2 (15:06→23:35)
[2017-01-17] MEDS: Carvedilol 3.125 MG Tab PO SCH (17:14)
--- NOTE | 2017-01-17 17:27 | CT ---
EXAM DATE: 01/16/17 PATIENT'S AGE: 76 Patient: MAGGIE WALKER Facility: [place], [place] Site . Site : 1940 Study: CT Head [id number]/2/2017 6:37:54 PM Ordering Physician: Doctor Mathew Final Report: INDICATION: stroke code FINDINGS: No intracranial hemorrhage, mass effect, or evidence for acute infarction. Patchy low attenuation changes in the white matter of both cerebral hemispheres consistent with chronic small vessel ischemic changes. Age- appropriate cerebral and cerebellar volume loss. Intracranial vascular calcifications. IMPRESSION: 1. No acute findings. 2. Chronic age-related changes. Discussed with Dr. Gunderson 18:48 01/16/2017. Please note that all CT scans performed at this facility use dose modulation, iterative reconstruction, and/or weight based dosing when appropriate to reduce radiation dose to as low as reasonably achievable. Dictated by: Juan José Vargas MD @ 01/16/2017 18:48:22 (Electronic Signature) Report Signed by Proxy. MTDD
--- NOTE | 2017-01-17 17:28 | CR ---
EXAM DATE: 01/16/17 PATIENT'S AGE: 76 Patient: MAGGIE WALKER Facility: [place], [place] Site . Site : 1940 Study: XRay Chest [id number]/2/2017 6:41:21 PM Ordering Physician: Doctor Mathew Final Report: INDICATION: shortness of breath TECHNIQUE: Chest 1 view COMPARISON: January 14, 2017 FINDINGS: Cardiovascular and mediastinum: Cardiomegaly. Atherosclerotic disease. Stable 2 lead ICD. Indistinct central vascularity. Mediastinum is within normal limits. Lungs and pleural space: No focal consolidation. No sign of pleural effusion. No pneumothorax. Bones: Stable resected left rib. Degenerative changes. Fusion changes of the lower cervical changes. IMPRESSION: Findings suggesting a component of pulmonary edema. Dictated by Toney Velazquez MD @ 01/16/2017 6:56:54 PM Dictated by: Toney Velazquez MD @ 01/16/2017 18:57:09 (Electronic Signature) Report Signed by Proxy. [facility]
[2017-01-17] MEDS: Pantoprazole 40 MG in Sodium Chloride 0.9% 10 ML IVPUSH SCH (20:42)
[2017-01-17] MEDS ORDERED: Gabapentin 300 MG Cap PO SCH (21:00)
[2017-01-18] MEDS: Ipratropium 0.02% 0.5 MG/2.5 ML Neb Soln NEB SCH ×6 (00:41→23:14)
[2017-01-18] MEDS: Cefepime 2 GM in Premix Bag 1 BAG IV SCH (00:45)
[2017-01-18] MEDS ORDERED: Haloperidol Lactate 5 MG/ML SDV IM ONE (04:30)
[2017-01-18] MEDS: Insulin Aspart 100 Units/ML 3 ML Pen SUBCUT SCH ×3 (07:45→17:11)
--- NOTE | 2017-01-18 08:45 | PCM.PN ---
- General Info Date of Service: 01/18/17 Subjective Update: Patient exhibited delerium last night. He was agitiated. He was given Haldol IM x 1. He still remains confused. Functional Status: Reports: tolerating diet - Review of Systems General: Reports: No Symptoms HEENT: Reports: no symptoms Pulmonary: Reports: shortness of breath, other Cardiovascular: Reports: No Symptoms Gastrointestinal: Reports: No symptoms Genitourinary: Reports: no symptoms Musculoskeletal: Reports: no symptoms Skin: Reports: no symptoms Neurological: Reports: No Symptoms Psychiatric: Reports: confusion - Patient Data Vitals - most recent: Last Vital Signs Temp 97.6 F 01/18/17 08:00 Pulse 75 01/17/17 17:14 Resp 18 01/18/17 08:00 BP 147/54 H 01/18/17 08:00 Pulse Ox 97 01/18/17 08:00 Weight - most recent: 78 kg I&O - last 24 hours: Intake & Output 01/17/17 01/18/17 01/18/17 22:59 06:59 14:59 Intake Total 1107 1500 Output Total 950 1300 Balance 157 200 Lab Results last 24 hrs: Laboratory Results - last 24 hr 01/17/17 01/17/17 01/17/17 Range/Units 00:18 01:50 05:52 WBC (4.0-11.0) K/uL RBC (4.50-5.90) M/uL Hgb (13.0-17.0) g/dL Hct (38.0-50.0) % MCV (80.0-98.0) fL MCH (27.0-32.0) pg MCHC (31.0-37.0) g/dL RDW Std Deviation (28.0-62.0) fl RDW Coeff of Mateus (11.0-15.0) % Plt Count (150-400) K/uL MPV (7.40-12.00) fL Add Manual Diff Neutrophils % (Manual) (48.0-80.0) % Lymphocytes % (Manual) (16.0-40.0) % Monocytes % (Manual) (0.0-15.0) % Eosinophils % (Manual) (0.0-7.0) % Nucleated RBC % /100WBC Absolute Seg Neuts Lymphocytes # (Manual) Monocytes # (Manual) Eosinophils # (Manual) Nucleated RBCs # K/uL Sodium (136-146) mmol/L Potassium (3.5-5.1) mmol/L Chloride (98-110) mmol/L Carbon Dioxide (21-31) mmol/L BUN (6.0-23.0) mg/dL Creatinine (0.6-1.5) mg/dL Est Cr Clr Drug Dosing mL/min Estimated GFR (MDRD) ml/min Glucose (60-110) mg/dL POC Glucose 59 L 155 H 133 H (60-110) mg/dL Calcium (8.8-10.8) mg/dL Iron (50-170) ug/dL TIBC (273-456) ug/dL % Saturation (20-55) % Total Bilirubin (0.1-1.5) mg/dL AST (5-40) IU/L ALT (8-54) IU/L Alkaline Phosphatase (40-150) Total Protein (6.0-8.0) g/dL Albumin (3.4-4.8) g/dL Globulin (2.0-3.5) g/dL Albumin/Globulin Ratio (1.3-2.8) 01/17/17 01/17/17 01/17/17 Range/Units 06:00 09:27 12:03 WBC (4.0-11.0) K/uL RBC (4.50-5.90) M/uL Hgb (13.0-17.0) g/dL Hct (38.0-50.0) % MCV (80.0-98.0) fL MCH (27.0-32.0) pg MCHC (31.0-37.0) g/dL RDW Std Deviation (28.0-62.0) fl RDW Coeff of Mateus (11.0-15.0) % Plt Count (150-400) K/uL MPV (7.40-12.00) fL Add Manual Diff Neutrophils % (Manual) (48.0-80.0) % Lymphocytes % (Manual) (16.0-40.0) % Monocytes % (Manual) (0.0-15.0) % Eosinophils % (Manual) (0.0-7.0) % Nucleated RBC % /100WBC Absolute Seg Neuts Lymphocytes # (Manual) Monocytes # (Manual) Eosinophils # (Manual) Nucleated RBCs # K/uL Sodium (136-146) mmol/L Potassium (3.5-5.1) mmol/L Chloride (98-110) mmol/L Carbon Dioxide (21-31) mmol/L BUN (6.0-23.0) mg/dL Creatinine (0.6-1.5) mg/dL Est Cr Clr Drug Dosing mL/min Estimated GFR (MDRD) ml/min Glucose (60-110) mg/dL POC Glucose 130 H 180 H (60-110) mg/dL Calcium (8.8-10.8) mg/dL Iron 41 L (50-170) ug/dL TIBC 254 L (273-456) ug/dL % Saturation 16.14 L (20-55) % Total Bilirubin (0.1-1.5) mg/dL AST (5-40) IU/L ALT (8-54) IU/L Alkaline Phosphatase (40-150) Total Protein (6.0-8.0) g/dL Albumin (3.4-4.8) g/dL Globulin (2.0-3.5) g/dL Albumin/Globulin Ratio (1.3-2.8) 01/17/17 01/18/17 01/18/17 Range/Units 17:05 05:07 05:07 WBC 8.72 (4.0-11.0) K/uL RBC 3.17 L (4.50-5.90) M/uL Hgb 9.3 L (13.0-17.0) g/dL Hct 29.1 L (38.0-50.0) % MCV 91.8 (80.0-98.0) fL MCH 29.3 (27.0-32.0) pg MCHC 32.0 (31.0-37.0) g/dL RDW Std Deviation 54.3 (28.0-62.0) fl RDW Coeff of Mateus 16 H (11.0-15.0) % Plt Count 171 (150-400) K/uL MPV 9.30 (7.40-12.00) fL Add Manual Diff YES Neutrophils % (Manual) 46 L (48.0-80.0) % Lymphocytes % (Manual) 10 L (16.0-40.0) % Monocytes % (Manual) 5 (0.0-15.0) % Eosinophils % (Manual) 39 H (0.0-7.0) % Nucleated RBC % 0.0 /100WBC Absolute Seg Neuts 4.0 Lymphocytes # (Manual) 0.9 Monocytes # (Manual) 0.4 Eosinophils # (Manual) 3.4 Nucleated RBCs # 0 K/uL Sodium 139 (136-146) mmol/L Potassium 4.8 (3.5-5.1) mmol/L Chloride 105 (98-110) mmol/L Carbon Dioxide 25 (21-31) mmol/L BUN 39 H (6.0-23.0) mg/dL Creatinine 2.1 H (0.6-1.5) mg/dL Est Cr Clr Drug Dosing 22.93 mL/min Estimated GFR (MDRD) 30.9 ml/min Glucose 90 (60-110) mg/dL POC Glucose 160 H (60-110) mg/dL Calcium 8.8 (8.8-10.8) mg/dL Iron (50-170) ug/dL TIBC (273-456) ug/dL % Saturation (20-55) % Total Bilirubin 0.5 (0.1-1.5) mg/dL AST 11 (5-40) IU/L ALT 8 (8-54) IU/L Alkaline Phosphatase 131 (40-150) Total Protein 7.1 (6.0-8.0) g/dL Albumin 3.5 (3.4-4.8) g/dL Globulin 3.6 H (2.0-3.5) g/dL Albumin/Globulin Ratio 1.0 L (1.3-2.8) 01/18/17 Range/Units 06:27 WBC (4.0-11.0) K/uL RBC (4.50-5.90) M/uL Hgb (13.0-17.0) g/dL Hct (38.0-50.0) % MCV (80.0-98.0) fL MCH (27.0-32.0) pg MCHC (31.0-37.0) g/dL RDW Std Deviation (28.0-62.0) fl RDW Coeff of Mateus (11.0-15.0) % Plt Count (150-400) K/uL MPV (7.40-12.00) fL Add Manual Diff Neutrophils % (Manual) (48.0-80.0) % Lymphocytes % (Manual) (16.0-40.0) % Monocytes % (Manual) (0.0-15.0) % Eosinophils % (Manual) (0.0-7.0) % Nucleated RBC % /100WBC Absolute Seg Neuts Lymphocytes # (Manual) Monocytes # (Manual) Eosinophils # (Manual) Nucleated RBCs # K/uL Sodium (136-146) mmol/L Potassium (3.5-5.1) mmol/L Chloride (98-110) mmol/L Carbon Dioxide (21-31) mmol/L BUN (6.0-23.0) mg/dL Creatinine (0.6-1.5) mg/dL Est Cr Clr Drug Dosing mL/min Estimated GFR (MDRD) ml/min Glucose (60-110) mg/dL POC Glucose 84 (60-110) mg/dL Calcium (8.8-10.8) mg/dL Iron (50-170) ug/dL TIBC (273-456) ug/dL % Saturation (20-55) % Total Bilirubin (0.1-1.5) mg/dL AST (5-40) IU/L ALT (8-54) IU/L Alkaline Phosphatase (40-150) Total Protein (6.0-8.0) g/dL Albumin (3.4-4.8) g/dL Globulin (2.0-3.5) g/dL Albumin/Globulin Ratio (1.3-2.8) Uriel Results last 24 hrs: Microbiology 01/17/17 12:37 Stool Occult Blood (URIEL) - Final Stool / Feces POSITIVE OCCULT BLOOD Med Orders - Current: Current Medications Bisacodyl (Dulcolax) 10 mg RECTAL DAILY PRN PRN Reason: Constipation Last Admin: 01/16/17 21:06 Dose: 10 mg Carvedilol (Coreg) 3.125 mg PO BIDMEALS [facility] Last Admin: 01/17/17 17:14 Dose: 3.125 mg Gabapentin (Neurontin) 300 mg PO BID [facility] Last Admin: 01/17/17 20:42 Dose: 300 mg Pantoprazole Sodium 40 mg/ (Sodium Chloride) 10 mls @ 300 mls/hr IVPUSH Q24H [facility] Last Admin: 01/17/17 20:42 Dose: 300 mls/hr Cefepime HCl 2 gm/ Premix 50 mls @ 100 mls/hr IV Q24H [facility] Last Admin: 01/18/17 00:45 Dose: 100 mls/hr Vancomycin HCl 1 gm/ Sodium (Chloride) 250 mls @ 166 mls/hr IV Q24H [facility] Last Admin: 01/18/17 01:24 Dose: 166 mls/hr Sodium Chloride (Normal Saline) 1,000 mls @ 125 mls/hr IV ASDIRECTED [facility] Last Admin: 01/17/17 23:35 Dose: 125 mls/hr Insulin Aspart (Novolog) 0 unit SUBCUT TIDAC [facility] PRN Reason: Protocol Last Admin: 01/18/17 07:45 Dose: Not Given Ipratropium [place] (Atrovent) 0.5 mg NEB Q6HRRT [facility] Last Admin: 01/18/17 07:49 Dose: 0.5 mg Levetiracetam (Keppra) 250 mg PO BID [facility] Last Admin: 01/17/17 20:42 Dose: 250 mg Discontinued Medications Albuterol/Ipratropium (Duoneb 3.0-0.5 Mg/3 Ml) 3 ml NEB Q6HRRT [facility] Last Admin: 01/17/17 01:15 Dose: Not Given Dextrose/Water (Dextrose 50% In Water) 50 ml IVPUSH ONETIME ONE Stop: 01/16/17 18:26 Last Admin: 01/16/17 18:15 Dose: 50 ml Dextrose/Water (Dextrose 50% In Water) 50 ml IVPUSH ONETIME ONE Stop: 01/17/17 00:27 Last Admin: 01/17/17 00:36 Dose: 50 ml Haloperidol Lactate (Haldol) 5 mg IM ONETIME ONE Stop: 01/18/17 04:31 Last Admin: 01/18/17 04:51 Dose: 5 mg Sodium Chloride (Normal Saline) 1,000 mls @ 125 mls/hr IV ASDIRECTED [facility] Last Admin: 01/16/17 21:04 Dose: 125 mls/hr Dextrose/Sodium Chloride (Dextrose 5%-Normal Saline) 1,000 mls @ 100 mls/hr IV ASDIRECTED [facility] Last Admin: 01/17/17 12:25 Dose: 100 mls/hr Insulin Aspart (Novolog) 0 unit SUBCUT TIDAC [facility] PRN Reason: Protocol Insulin Aspart (Novolog) 0 unit SUBCUT TIDAC [facility] PRN Reason: Protocol Naloxone HCl (Narcan) Confirm Administered Dose 0.4 mg .ROUTE .STK-MED ONE Stop: 01/16/17 18:18 Last Admin: 01/16/17 18:54 Dose: Not Given Naloxone HCl (Narcan) 0.4 mg IVPUSH ONETIME ONE Stop: 01/16/17 18:49 Last Admin: 01/16/17 18:19 Dose: 0.4 mg Vancomycin HCl (Pharmacy To Dose - Vancomycin) 1 dose .XX ONETIME ONE Stop: 01/17/17 01:14 Last Admin: 01/17/17 07:34 Dose: Not Given - Exam Quality Assessment: supplemental oxygen General: alert HEENT: Pupils equal, EOMI Neck: supple, trachea midline Lungs: Decreased breath sounds Cardiovascular: Regular Rate, Regular Rhythm Abdomen: bowel sounds present, soft, no tenderness Back Exam: Normal Inspection, Full Range of Motion Extremities: edema (trace) Skin: warm, dry, intact Neurological: no new focal deficit Psy/Mental Status: agitated - Problem List Review Problem List Initiated/Reviewed/Updated: Yes - My Orders Last 24 Hours: My Active Orders 01/17/17 11:30 Insulin Aspart [NovoLOG] 0 unit SUBCUT TIDAC 01/17/17 14:30 Sodium Chloride 0.9% [Normal Saline] 1,000 ml IV ASDIRECTED 01/17/17 Lunch ADA Diabetic [[place] [employer] Diet] [DIET] 01/18/17 08:08 AMMONIA VENOUS [CHEM] Routine 01/18/17 08:23 ABG [BLOOD GAS ARTERIAL] [BG] Routine MAGNESIUM [CHEM] Routine PHOSPHORUS [CHEM] Routine - Plan Plan:: 76 yo male with pmh of CHF, CKD, MEREDITH, COPD, and DM who presents with altered mental status. His altered mental status is likely multifactorial with a large differential including, acute kidney failure from over diuresis, polypharmacy, hypoglycemia, hypercapnia, hepatic encephalopathy. Delerium: DC neurontin. check ABG. Ammonia levels normal. Hypomagnesimia: replaced mg Hypoglycemia: resolved. Normal Saline. ADA diet. He is tolerating po intake. Left lower lobe pneumonia: Suspected GM negative respiratory infection: continue maxipime. on 2L of [place] oxygen. ALEXSANDER: improving creatinine 3.1 to 2.1 Anemia: Hb 9.3. Iron deficiency anemia: replace iron. The source is unknown. will discuss with as far as work up with endoscopy or colonoscopy COPD: on atrovent neb. Diabetes type 2 uncontrolled: on insulin sliding scale medium dose. GI prophylaxis: IV protonix DVT prophylaxis: SCDs boots secondary to positive Hemoccult. Plavix held. Seizures: continue keppra CAD: Coreg. Resume Plavix bowel regimen: on dulculox [place] prn. Dispo 1-2 days pending improvement.
[2017-01-18] MEDS ORDERED: Magnesium Sulfate/Water 2 GM in Premix Bag 1 BAG IV ONE (09:39)
[2017-01-18] MEDS: Carvedilol 3.125 MG Tab PO SCH ×2 (10:09→17:14)
[2017-01-18] MEDS: levETIRAcetam 500 MG Tab PO SCH ×2 (10:09→20:39)
[2017-01-18] MEDS: Sodium Chloride 0.9% 1,000 ML IV SCH (12:40)
[2017-01-18] MEDS ORDERED: Nitroglycerin 0.4 MG Tab.SL SL PRN (12:57)
[2017-01-18] MEDS: Clopidogrel 75 MG Tab PO SCH (13:11)
[2017-01-18] MEDS ORDERED: Benzonatate 100 MG Cap PO PRN (18:43)
[2017-01-18] MEDS: Pantoprazole 40 MG in Sodium Chloride 0.9% 10 ML IVPUSH SCH (20:38)
[2017-01-19] MEDS: Cefepime 2 GM in Premix Bag 1 BAG IV SCH (00:48)
[2017-01-19] MEDS: Ipratropium 0.02% 0.5 MG/2.5 ML Neb Soln NEB SCH ×3 (06:55→18:22)
[2017-01-19] MEDS: Insulin Aspart 100 Units/ML 3 ML Pen SUBCUT SCH ×3 (07:06→17:52)
[2017-01-19] MEDS: atorvaSTATin 40 MG Tab PO SCH (09:17)
[2017-01-19] MEDS: Clopidogrel 75 MG Tab PO SCH (09:17)
[2017-01-19] MEDS: Carvedilol 3.125 MG Tab PO SCH ×2 (09:18→17:34)
[2017-01-19] MEDS: Isosorbide Mononitrate 30 MG Tab.ER PO SCH (09:18)
[2017-01-19] MEDS: Ferrous Sulfate 325 MG Tab PO SCH (09:18)
[2017-01-19] MEDS: levETIRAcetam 500 MG Tab PO SCH ×2 (09:19→20:26)
[2017-01-19] MEDS: amLODIPine 5 MG Tab PO SCH (09:19)
[2017-01-19] MEDS: Torsemide 20 MG Tab PO SCH (09:28)
--- NOTE | 2017-01-19 11:17 | PCM.PN ---
- General Info Date of Service: 01/19/17 Subjective Update: Episodic confusion. Appetite is improving, Fluids discontinued. Functional Status: Reports: tolerating diet - Review of Systems General: Reports: No Symptoms HEENT: Reports: no symptoms Pulmonary: Reports: no symptoms Cardiovascular: Reports: No Symptoms Gastrointestinal: Reports: No symptoms Genitourinary: Reports: no symptoms Musculoskeletal: Reports: no symptoms Skin: Reports: no symptoms Neurological: Reports: No Symptoms Psychiatric: Reports: confusion - Patient Data Vitals - most recent: Last Vital Signs Temp 97.3 F 01/19/17 08:00 Pulse 82 01/19/17 09:18 Resp 23 H 01/19/17 08:00 BP 150/77 H 01/19/17 09:19 Pulse Ox 95 01/19/17 08:00 Weight - most recent: 79.6 kg I&O - last 24 hours: Intake & Output 01/18/17 01/19/17 01/19/17 22:59 06:59 14:59 Intake Total 1710 1300 Output Total 1900 1720 Balance -190 -420 Lab Results last 24 hrs: Laboratory Results - last 24 hr 01/18/17 01/18/17 01/19/17 Range/Units 12:32 17:10 04:55 WBC 8.27 (4.0-11.0) K/uL RBC 3.17 L (4.50-5.90) M/uL Hgb 9.4 L (13.0-17.0) g/dL Hct 29.0 L (38.0-50.0) % MCV 91.5 (80.0-98.0) fL MCH 29.7 (27.0-32.0) pg MCHC 32.4 (31.0-37.0) g/dL RDW Std Deviation 53.8 (28.0-62.0) fl RDW Coeff of Mateus 16 H (11.0-15.0) % Plt Count 169 (150-400) K/uL MPV 9.40 (7.40-12.00) fL Neut % (Auto) 45.2 L (48.0-80.0) % Lymph % (Auto) 9.3 L (16.0-40.0) % [place] % (Auto) 8.2 (0.0-15.0) % Eos % (Auto) 36.8 H (0.0-7.0) % Baso % (Auto) 0.5 (0.0-1.5) % Neut # (Auto) 3.7 (1.4-5.7) K/uL Lymph # (Auto) 0.8 (0.6-2.4) K/uL [place] # (Auto) 0.7 (0.0-0.8) K/uL Eos # (Auto) 3.0 H (0.0-0.7) K/uL Baso # (Auto) 0.0 (0.0-0.1) K/uL Nucleated RBC % 0.0 /100WBC Nucleated RBCs # 0 K/uL Sodium (136-146) mmol/L Potassium (3.5-5.1) mmol/L Chloride (98-110) mmol/L Carbon Dioxide (21-31) mmol/L BUN (6.0-23.0) mg/dL Creatinine (0.6-1.5) mg/dL Est Cr Clr Drug Dosing mL/min Estimated GFR (MDRD) ml/min Glucose (60-110) mg/dL POC Glucose 87 112 H (60-110) mg/dL Calcium (8.8-10.8) mg/dL Phosphorus (2.4-4.7) mg/dL Magnesium (1.5-2.3) mEq/L 01/19/17 01/19/17 Range/Units 04:55 07:05 WBC (4.0-11.0) K/uL RBC (4.50-5.90) M/uL Hgb (13.0-17.0) g/dL Hct (38.0-50.0) % MCV (80.0-98.0) fL MCH (27.0-32.0) pg MCHC (31.0-37.0) g/dL RDW Std Deviation (28.0-62.0) fl RDW Coeff of Mateus (11.0-15.0) % Plt Count (150-400) K/uL MPV (7.40-12.00) fL Neut % (Auto) (48.0-80.0) % Lymph % (Auto) (16.0-40.0) % [place] % (Auto) (0.0-15.0) % Eos % (Auto) (0.0-7.0) % Baso % (Auto) (0.0-1.5) % Neut # (Auto) (1.4-5.7) K/uL Lymph # (Auto) (0.6-2.4) K/uL [place] # (Auto) (0.0-0.8) K/uL Eos # (Auto) (0.0-0.7) K/uL Baso # (Auto) (0.0-0.1) K/uL Nucleated RBC % /100WBC Nucleated RBCs # K/uL Sodium 135 L (136-146) mmol/L Potassium 5.1 (3.5-5.1) mmol/L Chloride 103 (98-110) mmol/L Carbon Dioxide 24 (21-31) mmol/L BUN 25 H (6.0-23.0) mg/dL Creatinine 1.6 H (0.6-1.5) mg/dL Est Cr Clr Drug Dosing 30.09 mL/min Estimated GFR (MDRD) 42.2 ml/min Glucose 207 H (60-110) mg/dL POC Glucose 185 H (60-110) mg/dL Calcium 9.0 (8.8-10.8) mg/dL Phosphorus 2.2 L (2.4-4.7) mg/dL Magnesium 1.6 (1.5-2.3) mEq/L Med Orders - Current: Current Medications Amlodipine Besylate (Norvasc) 5 mg PO DAILY [facility] Last Admin: 01/19/17 09:19 Dose: 5 mg Atorvastatin Calcium (Lipitor) 40 mg PO DAILY [facility] Last Admin: 01/19/17 09:17 Dose: 40 mg Benzonatate (Tessalon Perles) 100 mg PO Q6H PRN PRN Reason: Cough Bisacodyl (Dulcolax) 10 mg RECTAL DAILY PRN PRN Reason: Constipation Last Admin: 01/16/17 21:06 Dose: 10 mg Carvedilol (Coreg) 3.125 mg PO BIDMEALS [facility] Last Admin: 01/19/17 09:18 Dose: 3.125 mg Clopidogrel Bisulfate (Plavix) 75 mg PO DAILY [facility] Last Admin: 01/19/17 09:17 Dose: 75 mg Ferrous Sulfate (Ferrous Sulfate) 325 mg PO WITHBREAKFAST [facility] Last Admin: 01/19/17 09:18 Dose: 325 mg Pantoprazole Sodium 40 mg/ (Sodium Chloride) 10 mls @ 300 mls/hr IVPUSH Q24H [facility] Last Admin: 01/18/17 20:38 Dose: 300 mls/hr Cefepime HCl 2 gm/ Premix 50 mls @ 100 mls/hr IV Q24H [facility] Last Admin: 01/19/17 00:48 Dose: 100 mls/hr Vancomycin HCl 1 gm/ Sodium (Chloride) 250 mls @ 166 mls/hr IV Q24H [facility] Last Admin: 01/19/17 00:59 Dose: 166 mls/hr Insulin Aspart (Novolog) 0 unit SUBCUT TIDAC [facility] PRN Reason: Protocol Last Admin: 01/19/17 07:06 Dose: 2 units Ipratropium [place] (Atrovent) 0.5 mg NEB Q6HRRT [facility] Last Admin: 01/19/17 06:55 Dose: 0.5 mg Isosorbide Mononitrate (Imdur) 30 mg PO DAILY [facility] Last Admin: 01/19/17 09:18 Dose: 30 mg Levetiracetam (Keppra) 250 mg PO BID [facility] Last Admin: 01/19/17 09:19 Dose: 250 mg Nitroglycerin (Nitrostat) 0.4 mg SL Q5M PRN PRN Reason: Chest Pain Ranolazine (Ranexa) 500 mg PO BID [facility] Last Admin: 01/19/17 09:17 Dose: 500 mg Torsemide (Demadex) 40 mg PO DAILY [facility] Last Admin: 01/19/17 09:28 Dose: 40 mg Discontinued Medications Albuterol/Ipratropium (Duoneb 3.0-0.5 Mg/3 Ml) 3 ml NEB Q6HRRT [facility] Last Admin: 01/17/17 01:15 Dose: Not Given Dextrose/Water (Dextrose 50% In Water) 50 ml IVPUSH ONETIME ONE Stop: 01/16/17 18:26 Last Admin: 01/16/17 18:15 Dose: 50 ml Dextrose/Water (Dextrose 50% In Water) 50 ml IVPUSH ONETIME ONE Stop: 01/17/17 00:27 Last Admin: 01/17/17 00:36 Dose: 50 ml Gabapentin (Neurontin) 300 mg PO BID [facility] Last Admin: 01/17/17 20:42 Dose: 300 mg Haloperidol Lactate (Haldol) 5 mg IM ONETIME ONE Stop: 01/18/17 04:31 Last Admin: 01/18/17 04:51 Dose: 5 mg Sodium Chloride (Normal Saline) 1,000 mls @ 125 mls/hr IV ASDIRECTED [facility] Last Admin: 01/16/17 21:04 Dose: 125 mls/hr Dextrose/Sodium Chloride (Dextrose 5%-Normal Saline) 1,000 mls @ 100 mls/hr IV ASDIRECTED [facility] Last Admin: 01/17/17 12:25 Dose: 100 mls/hr Sodium Chloride (Normal Saline) 1,000 mls @ 125 mls/hr IV ASDIRECTED [facility] Last Admin: 01/18/17 12:40 Dose: 125 mls/hr Magnesium Sulfate 2 gm/ Premix 50 mls @ 25 mls/hr IV ONETIME ONE Stop: 01/18/17 11:38 Last Admin: 01/18/17 10:10 Dose: 25 mls/hr Insulin Aspart (Novolog) 0 unit SUBCUT TIDAC [facility] PRN Reason: Protocol Insulin Aspart (Novolog) 0 unit SUBCUT TIDAC [facility] PRN Reason: Protocol Naloxone HCl (Narcan) Confirm Administered Dose 0.4 mg .ROUTE .STK-MED ONE Stop: 01/16/17 18:18 Last Admin: 01/16/17 18:54 Dose: Not Given Naloxone HCl (Narcan) 0.4 mg IVPUSH ONETIME ONE Stop: 01/16/17 18:49 Last Admin: 01/16/17 18:19 Dose: 0.4 mg Vancomycin HCl (Pharmacy To Dose - Vancomycin) 1 dose .XX ONETIME ONE Stop: 01/17/17 01:14 Last Admin: 01/17/17 07:34 Dose: Not Given - Exam General: alert, oriented HEENT: Pupils equal, EOMI Neck: supple, trachea midline Lungs: Clear to auscultation, Decreased breath sounds Cardiovascular: Regular Rate, Regular Rhythm Abdomen: bowel sounds present, soft, no tenderness Back Exam: Normal Inspection, Full Range of Motion Extremities: no edema Skin: warm, dry, intact Neurological: no new focal deficit Psy/Mental Status: alert, normal affect, normal mood - Problem List Review Problem List Initiated/Reviewed/Updated: Yes - My Orders Last 24 Hours: My Active Orders 01/18/17 12:57 Nitroglycerin [Nitrostat] 0.4 mg SL Q5M PRN 01/18/17 13:00 Clopidogrel [Plavix] 75 mg PO DAILY 01/18/17 21:00 Ranolazine [Ranexa] 500 mg PO BID 01/19/17 08:00 Ferrous Sulfate 325 mg PO WITHBREAKFAST 01/19/17 09:00 Isosorbide Mononitrate [Imdur] 30 mg PO DAILY Torsemide [Demadex] 40 mg PO DAILY amLODIPine [Norvasc] 5 mg PO DAILY atorvaSTATin [Lipitor] 40 mg PO DAILY 01/20/17 05:11 BASIC METABOLIC PANEL,BMP [CHEM] AM CBC WITH AUTO DIFF [HEME] AM MAGNESIUM [CHEM] AM PHOSPHORUS [CHEM] AM 01/21/17 05:11 BASIC METABOLIC PANEL,BMP [CHEM] AM CBC WITH AUTO DIFF [HEME] AM MAGNESIUM [CHEM] AM PHOSPHORUS [CHEM] AM - Plan Plan:: 76 yo male with pmh of CHF, CKD, MEREDITH, COPD, and DM who presents with altered mental status. His altered mental status is likely multifactorial with a large differential including, acute kidney failure from over diuresis, polypharmacy, hypoglycemia, hypercapnia, hepatic encephalopathy, and stroke. Will monitor in ICU. Will hydrate with IV fluids and hold sedating medication.is altered mental status is likely multifactorial with a large differential including, acute kidney failure from over diuresis, polypharmacy, hypoglycemia, hypercapnia , hepatic encephalopathy. Delerium: slightly improving. Hypoglycemia: resolved. ADA diet. He is tolerating po intake. Left lower lobe pneumonia: Suspected GM negative respiratory infection: continue maxipime and vancomycin. on 1L of [place] oxygen. Sats improving ALEXSANDER: improving creatinine 3.1 to 1.6 Anemia: Hb 9.4. Iron deficiency anemia: replace iron. The source is unknown. COPD: on atrovent neb. Diabetes type 2 uncontrolled: on insulin sliding scale medium dose. glucose is 80-180 GI prophylaxis: IV protonix DVT prophylaxis: SCDs boots secondary to positive Hemoccult. Seizures: continue keppra CAD: Coreg, imudur, renenza. Resume Plavix bowel regimen: on dulculox [place] prn. Dispo 1-2 days pending improvement.
[2017-01-19] MEDS ORDERED: Ipratropium 0.02% 0.5 MG/2.5 ML Neb Soln NEB PRN (19:41)
[2017-01-19] MEDS: Pantoprazole 40 MG in Sodium Chloride 0.9% 10 ML IVPUSH SCH (20:25)
[2017-01-20] MEDS: Cefepime 2 GM in Premix Bag 1 BAG IV SCH (00:36)
[2017-01-20] MEDS: Insulin Aspart 100 Units/ML 3 ML Pen SUBCUT SCH ×2 (07:45→11:49)
[2017-01-20] MEDS: Ferrous Sulfate 325 MG Tab PO SCH (08:59)
[2017-01-20] MEDS: Carvedilol 3.125 MG Tab PO SCH (08:59)
[2017-01-20] MEDS: Isosorbide Mononitrate 30 MG Tab.ER PO SCH (09:06)
[2017-01-20] MEDS: atorvaSTATin 40 MG Tab PO SCH (09:07)
[2017-01-20] MEDS: Clopidogrel 75 MG Tab PO SCH (09:07)
[2017-01-20] MEDS: amLODIPine 5 MG Tab PO SCH (09:07)
[2017-01-20] MEDS: levETIRAcetam 500 MG Tab PO SCH (09:09)
[2017-01-20] MEDS: Torsemide 20 MG Tab PO SCH (09:18)
--- NOTE | 2017-01-20 11:11 | PCM.DCSUM1 ---
Discharge Summary - Hospital Course Free Text/Narrative:: 76-year-old male with history of CHF, DM 2, hypertension, hyperlipidemia, seizures admitted for hypoglycemia, mental status change , acute COPD and left lower lobe pneumonia, ALEXSANDER. He presented to the ER with lethargy, change in mental status, slurred speech. Head CT showed chronic age related changes.CXR showed cardiomegaly, pulmonary edema. EKG did not show any acute ST or T wave changes. He was admitted to ICU. His baclofen was discontinued. He was persistently hypoglycemia despite amp of D50 , D5 IV NS started as well as BIPAP for acute on chronic hypercapnic respiratory failure. He was started on broad spectrum antibiotics for suspected gram negative bacteria and recent hospitilization in [place], [place]. During hospitalization, he developed delirium where he required haldol. He has improved. His home medications were resumed. He then became confused. It is thought that neurontin could be contributing factor. He has improved after it was stopped. He also dark colored stools. Hemoccult was positives. He was found to be iron deficient due to unknown source. He was started on iron supplements. His creatine has improved form 3.1 to 1.7. His mental status has improved. He is to follow up Dr. Bloom PCP. - Discharge Data Discharge Date: 01/20/17 Discharge Disposition: Home, Self-Care 01 Condition: Fair - Patient Instructions Diet: Heart Healthy Diet, Diabetic Diet Activity: As Tolerated Driving: Do Not Drive Showering/Bathing: May Shower Notify Provider of: Fever, Increased Pain, Swelling and Redness, Drainage, Nausea and/or Vomiting - Discharge Plan Prescriptions/Med Rec: Ferrous Sulfate 325 mg PO WITHBREAKFAST #30 tablet Insulin Glarg,Human.Rec.Analog [LantUS] 5 unit SUBCUT DAILY #1 bottle Levofloxacin [Levaquin] 750 mg PO Q24H #5 tablet Home Medications: Home Meds Carvedilol 3.125 mg PO BIDMEALS 01/14/17 [History] Clopidogrel [Plavix] 75 mg PO DAILY 01/14/17 [History] Docusate Sodium 100 mg PO BID 01/14/17 [History] Isosorbide Mononitrate [Isosorbide Mononitrate ER] 30 mg PO DAILY 01/14/17 [ History] Nitroglycerin 0.4 mg SL Q5M PRN 01/14/17 [History] Pantoprazole [ProTONIX] 40 mg PO ACBREAKFAST 01/14/17 [History] Ranolazine [Ranexa] 500 mg PO BID 01/14/17 [History] Tamsulosin HCl [Flomax] 0.4 mg PO DAILY 01/14/17 [History] Torsemide 40 mg PO DAILY 01/14/17 [History] amLODIPine [Norvasc] 5 mg PO DAILY 01/14/17 [History] atorvaSTATin [Lipitor] 40 mg PO DAILY 01/14/17 [History] levETIRAcetam [Levetiracetam] 250 mg PO BID 01/14/17 [History] Ferrous Sulfate 325 mg PO WITHBREAKFAST #30 tablet 01/20/17 [Rx] Insulin Glarg,Human.Rec.Analog [LantUS] 5 unit SUBCUT DAILY #1 bottle 01/20/17 [ Rx] Levofloxacin [Levaquin] 750 mg PO Q24H #5 tablet 01/20/17 [Rx] Patient Handouts: Iron tablets, capsules, extended-release tablets, Levofloxacin tablets, Insulin Glargine injection, Community-Acquired Pneumonia, Adult, [id number] Referrals: Derek Spring DO [Physician] - 01/27/17 11:30 am Raymundo Julian MD [Physician] - 01/27/17 1:30 pm - General Info Date of Service: 01/20/17 Functional Status: Reports: pain controlled, tolerating diet, ambulating, urinating - Review of Systems General: Reports: No Symptoms HEENT: Reports: no symptoms Pulmonary: Reports: no symptoms Cardiovascular: Reports: No Symptoms Gastrointestinal: Reports: No symptoms Genitourinary: Reports: no symptoms Musculoskeletal: Reports: no symptoms Skin: Reports: no symptoms Neurological: Reports: Confusion (improved) Psychiatric: Reports: no symptoms - Patient Data Vitals - Most Recent: Last Vital Signs Temp 97.6 F 01/20/17 09:00 Pulse 94 01/20/17 08:59 Resp 18 01/20/17 09:00 BP 147/67 H 01/20/17 09:07 Pulse Ox 91 L 01/20/17 09:00 Weight - Most Recent: 78.6 kg I&O - Last 24 hours: Intake & Output 01/19/17 01/20/17 01/20/17 22:59 06:59 14:59 Intake Total 1010 850 Output Total 2500 920 Balance -1490 -70 Lab Results - Last 24 hrs: Laboratory Results - last 24 hr 01/18/17 01/19/17 01/20/17 Range/Units 08:25 17:36 01:00 WBC (4.0-11.0) K/uL RBC (4.50-5.90) M/uL Hgb (13.0-17.0) g/dL Hct (38.0-50.0) % MCV (80.0-98.0) fL MCH (27.0-32.0) pg MCHC (31.0-37.0) g/dL RDW Std Deviation (28.0-62.0) fl RDW Coeff of Mateus (11.0-15.0) % Plt Count (150-400) K/uL MPV (7.40-12.00) fL Neut % (Auto) (48.0-80.0) % Lymph % (Auto) (16.0-40.0) % Bibb % (Auto) (0.0-15.0) % Eos % (Auto) (0.0-7.0) % Baso % (Auto) (0.0-1.5) % Neut # (Auto) (1.4-5.7) K/uL Lymph # (Auto) (0.6-2.4) K/uL Bibb # (Auto) (0.0-0.8) K/uL Eos # (Auto) (0.0-0.7) K/uL Baso # (Auto) (0.0-0.1) K/uL Nucleated RBC % /100WBC Nucleated RBCs # K/uL Sodium (136-146) mmol/L Potassium (3.5-5.1) mmol/L Chloride (98-110) mmol/L Carbon Dioxide (21-31) mmol/L BUN (6.0-23.0) mg/dL Creatinine (0.6-1.5) mg/dL Est Cr Clr Drug Dosing mL/min Estimated GFR (MDRD) ml/min Glucose (60-110) mg/dL POC Glucose 170 H (60-110) mg/dL Calcium (8.8-10.8) mg/dL Phosphorus (2.4-4.7) mg/dL Magnesium (1.5-2.3) mEq/L Ferritin 44 (24-336) ng/mL Vancomycin Trough 12.9 (5-15) ug/mL 01/20/17 01/20/17 01/20/17 Range/Units 06:10 06:10 06:51 WBC 7.53 (4.0-11.0) K/uL RBC 3.13 L (4.50-5.90) M/uL Hgb 9.3 L (13.0-17.0) g/dL Hct 28.3 L (38.0-50.0) % MCV 90.4 (80.0-98.0) fL MCH 29.7 (27.0-32.0) pg MCHC 32.9 (31.0-37.0) g/dL RDW Std Deviation 54.2 (28.0-62.0) fl RDW Coeff of Mateus 16 H (11.0-15.0) % Plt Count 151 (150-400) K/uL MPV 8.70 (7.40-12.00) fL Neut % (Auto) 41.0 L (48.0-80.0) % Lymph % (Auto) 15.4 L (16.0-40.0) % Bibb % (Auto) 7.0 (0.0-15.0) % Eos % (Auto) 36.1 H (0.0-7.0) % Baso % (Auto) 0.5 (0.0-1.5) % Neut # (Auto) 3.1 (1.4-5.7) K/uL Lymph # (Auto) 1.2 (0.6-2.4) K/uL Bibb # (Auto) 0.5 (0.0-0.8) K/uL Eos # (Auto) 2.7 H (0.0-0.7) K/uL Baso # (Auto) 0.0 (0.0-0.1) K/uL Nucleated RBC % 0.0 /100WBC Nucleated RBCs # 0 K/uL Sodium 136 (136-146) mmol/L Potassium 4.9 (3.5-5.1) mmol/L Chloride 101 (98-110) mmol/L Carbon Dioxide 26 (21-31) mmol/L BUN 25 H (6.0-23.0) mg/dL Creatinine 1.7 H (0.6-1.5) mg/dL Est Cr Clr Drug Dosing 28.32 mL/min Estimated GFR (MDRD) 39.4 ml/min Glucose 179 H (60-110) mg/dL POC Glucose 168 H (60-110) mg/dL Calcium 9.5 (8.8-10.8) mg/dL Phosphorus 2.7 (2.4-4.7) mg/dL Magnesium 1.1 L (1.5-2.3) mEq/L Ferritin (24-336) ng/mL Vancomycin Trough (5-15) ug/mL Med Orders - Current: Current Medications Amlodipine Besylate (Norvasc) 5 mg PO DAILY [facility] Last Admin: 01/20/17 09:07 Dose: 5 mg Atorvastatin Calcium (Lipitor) 40 mg PO DAILY [facility] Last Admin: 01/20/17 09:07 Dose: 40 mg Benzonatate (Tessalon Perles) 100 mg PO Q6H PRN PRN Reason: Cough Bisacodyl (Dulcolax) 10 mg RECTAL DAILY PRN PRN Reason: Constipation Last Admin: 01/16/17 21:06 Dose: 10 mg Carvedilol (Coreg) 3.125 mg PO BIDMEALS [facility] Last Admin: 01/20/17 08:59 Dose: 3.125 mg Clopidogrel Bisulfate (Plavix) 75 mg PO DAILY [facility] Last Admin: 01/20/17 09:07 Dose: 75 mg Ferrous Sulfate (Ferrous Sulfate) 325 mg PO WITHBREAKFAST [facility] Last Admin: 01/20/17 08:59 Dose: 325 mg Pantoprazole Sodium 40 mg/ (Sodium Chloride) 10 mls @ 300 mls/hr IVPUSH Q24H [facility] Last Admin: 01/19/17 20:25 Dose: 300 mls/hr Cefepime HCl 2 gm/ Premix 50 mls @ 100 mls/hr IV Q24H [facility] Last Admin: 01/20/17 00:36 Dose: 100 mls/hr Vancomycin HCl 1 gm/ Sodium (Chloride) 250 mls @ 166 mls/hr IV Q24H [facility] Last Admin: 01/20/17 01:25 Dose: 166 mls/hr Insulin Aspart (Novolog) 0 unit SUBCUT TIDAC [facility] PRN Reason: Protocol Last Admin: 01/20/17 07:45 Dose: 2 units Ipratropium [place] (Atrovent) 0.5 mg NEB Q6HRRT PRN PRN Reason: Wheezing Isosorbide Mononitrate (Imdur) 30 mg PO DAILY [facility] Last Admin: 01/20/17 09:06 Dose: 30 mg Levetiracetam (Keppra) 250 mg PO BID [facility] Last Admin: 01/20/17 09:09 Dose: 250 mg Nitroglycerin (Nitrostat) 0.4 mg SL Q5M PRN PRN Reason: Chest Pain Ranolazine (Ranexa) 500 mg PO BID [facility] Last Admin: 01/20/17 09:08 Dose: 500 mg Torsemide (Demadex) 40 mg PO DAILY [facility] Last Admin: 01/20/17 09:18 Dose: 40 mg Discontinued Medications Albuterol/Ipratropium (Duoneb 3.0-0.5 Mg/3 Ml) 3 ml NEB Q6HRRT [facility] Last Admin: 01/17/17 01:15 Dose: Not Given Dextrose/Water (Dextrose 50% In Water) 50 ml IVPUSH ONETIME ONE Stop: 01/16/17 18:26 Last Admin: 01/16/17 18:15 Dose: 50 ml Dextrose/Water (Dextrose 50% In Water) 50 ml IVPUSH ONETIME ONE Stop: 01/17/17 00:27 Last Admin: 01/17/17 00:36 Dose: 50 ml Gabapentin (Neurontin) 300 mg PO BID [facility] Last Admin: 01/17/17 20:42 Dose: 300 mg Haloperidol Lactate (Haldol) 5 mg IM ONETIME ONE Stop: 01/18/17 04:31 Last Admin: 01/18/17 04:51 Dose: 5 mg Sodium Chloride (Normal Saline) 1,000 mls @ 125 mls/hr IV ASDIRECTED [facility] Last Admin: 01/16/17 21:04 Dose: 125 mls/hr Dextrose/Sodium Chloride (Dextrose 5%-Normal Saline) 1,000 mls @ 100 mls/hr IV ASDIRECTED [facility] Last Admin: 01/17/17 12:25 Dose: 100 mls/hr Sodium Chloride (Normal Saline) 1,000 mls @ 125 mls/hr IV ASDIRECTED [facility] Last Admin: 01/18/17 12:40 Dose: 125 mls/hr Magnesium Sulfate 2 gm/ Premix 50 mls @ 25 mls/hr IV ONETIME ONE Stop: 01/18/17 11:38 Last Admin: 01/18/17 10:10 Dose: 25 mls/hr Insulin Aspart (Novolog) 0 unit SUBCUT TIDAC [facility] PRN Reason: Protocol Insulin Aspart (Novolog) 0 unit SUBCUT TIDAC [facility] PRN Reason: Protocol Ipratropium [place] (Atrovent) 0.5 mg NEB Q6HRRT [facility] Last Admin: 01/19/17 18:22 Dose: 0.5 mg Naloxone HCl (Narcan) Confirm Administered Dose 0.4 mg .ROUTE .STK-MED ONE Stop: 01/16/17 18:18 Last Admin: 01/16/17 18:54 Dose: Not Given Naloxone HCl (Narcan) 0.4 mg IVPUSH ONETIME ONE Stop: 01/16/17 18:49 Last Admin: 01/16/17 18:19 Dose: 0.4 mg Vancomycin HCl (Pharmacy To Dose - Vancomycin) 1 dose .XX ONETIME ONE Stop: 01/17/17 01:14 Last Admin: 01/17/17 07:34 Dose: Not Given - Exam General: Reports: alert, oriented, cooperative HEENT: Reports: Pupils equal, EOMI Neck: Reports: supple, trachea midline Lungs: Reports: Clear to auscultation, Normal respiratory effort Cardiovascular: Reports: Regular Rate, Regular Rhythm Back Exam: Reports: Normal Inspection, Full Range of Motion Extremities: Reports: edema (trace) Skin: Reports: warm, dry, intact Neurological: Reports: no new focal deficit Psy/Mental Status: Reports: alert, normal affect, normal mood *Q Meaningful Use (DIS) - VTE *Q VTE Criteria *Q: - Stroke *Q Stroke Criteria *Q: - AMI *Q AMI Criteria *Q:
[2017-01-20 11:51] VITALS: BP 153/75
== END 2017-01-20 13:39 | disposition home or self-care (01) | DRG 194 ==
LOC: MW.ED 18:11 → MW.ICU 19:14
PROVIDERS: ADMIT Internal Medicine; ATTEND Internal Medicine
DX: J18.9 Pneumonia, unspecified organism (principal); I13.0 Hypertensive heart and chronic kidney disease with heart failure and stage 1 through stage 4 chronic kidney disease, or unspecified chronic kidney disease; N17.9 Acute kidney failure, unspecified; R41.82 Altered mental status, unspecified; N18.9 Chronic kidney disease, unspecified; E10.22 Type 1 diabetes mellitus with diabetic chronic kidney disease; G47.33 Obstructive sleep apnea (adult) (pediatric); J44.9 Chronic obstructive pulmonary disease, unspecified; E10.649 Type 1 diabetes mellitus with hypoglycemia without coma; D64.9 Anemia, unspecified; I25.10 Atherosclerotic heart disease of native coronary artery without angina pectoris; R45.1 Restlessness and agitation; G40.909 Epilepsy, unspecified, not intractable, without status epilepticus; R06.89 Other abnormalities of breathing; K72.90 Hepatic failure, unspecified without coma; Z79.4 Long term (current) use of insulin; Z79.899 Other long term (current) drug therapy; Z86.73 Personal history of transient ischemic attack (TIA), and cerebral infarction without residual deficits
CPT/HCPCS: 36415; 36600; 70450; 71010; 80053; 80305; 81001; 82140; 82803; 83605; 83880; 84484; 85025; 85610; 87040 ×2; 93005; 96374; 96375; 99285; A9270; G0480; J7060; 80048; 80202; 82272; 82728; 82962; 83550; 83735; 84100; 94640; 94660; 99284; C9113; J0692; J1630; J1815-GY; J3370; J3475; J7040; J7042; J7050

== ENCOUNTER 2017-01-30 06:50 | Inpatient (IN) | payer MEDICARE ==
[2017-01-30] MEDS ORDERED: Sodium Chloride 0.9% 2.5 ML Syringe FLUSH PRN (07:12)
[2017-01-30] MEDS ORDERED: Sodium Chloride 0.9% 10 ML Syringe FLUSH PRN (07:12)
[2017-01-30] MEDS ORDERED: Albuterol 0.083% 2.5 MG/3 ML Neb Soln NEB ONE (07:55)
[2017-01-30] MEDS ORDERED: Insulin Regular, Human 100 Units/ML 10 ML Vial IVPUSH ONE ×2 (07:56→13:12)
[2017-01-30] MEDS ORDERED: 50% Dextrose in Water 50 ML Syringe IVPUSH ONE ×2 (07:57→13:12)
--- NOTE | 2017-01-30 08:19 | EDM.PDOC ---
ED HPI GENERAL MEDICAL PROBLEM - General Chief Complaint: Head Injury Stated Complaint: FELL,HIT HEAD,CARDIAC & KIDNEY CONCERNS Time Seen by Provider: 01/30/17 07:02 Source of Information: Reports: Patient, Family - History of Present Illness INITIAL COMMENTS - FREE TEXT/NARRATIVE: History of present illness: []Patient fell while he was trying to get out of bed's morning at 6:30. He hit the back of his head on some furniture without any loss of consciousness. He has been falling frequently and had a fall yesterday. Patient was recently discharged from the hospital for treatment of pneumonia. At that time he was also found to have Hemoccult-positive stools causing anemia, change in mental status and recurring hypoglycemia. Review of systems: As per history of present illness and below otherwise all systems reviewed and negative. Past medical history: As per history of present illness and as reviewed below otherwise noncontributory. Surgical history: As per history of present illness and as reviewed below otherwise noncontributory. Social history: No reported history of drug or alcohol abuse. Family history: As per history of present illness and as reviewed below otherwise noncontributory. Physical exam: General: Well developed, well nourished in NAD HEENT: 3-1/2 cm posterior scalp laceration to the subcutaneous tissue, normocephalic, pupils reactive, negative for conjunctival pallor or scleral icterus, mucous membranes moist, throat clear, neck supple, nontender, trachea midline. Lungs: Clear to auscultation, breath sounds equal bilaterally, chest nontender. Heart: S1S2, regular, negative for clicks, rubs, or JVD. Abdomen: Soft, nondistended, nontender. Negative for masses or hepatosplenomegaly. Negative for costovertebral tenderness. Pelvis: Stable nontender. Genitourinary: Deferred. Rectal: Deferred. Extremities: Atraumatic, negative for cords or calf pain. Neurovascular unremarkable. Neuro: Awake, alert, oriented. Cranial nerves II through XII unremarkable. Cerebellum unremarkable. Motor and sensory unremarkable throughout. Exam nonfocal. Diagnostics: []CT head and neck show no bleed or acute fractures, potassium is elevated, anemia is mildly worse, EKG shows no ischemic changes Therapeutics: []Scalp wound was cleaned and stapled. Patient was given albuterol, insulin and glucose for his hyperkalemia. Kayexalate will be started once disposition is determined. was consulted and will be admitting the patient to the ICU for further care Impression: []Frequent falling, scalp laceration, hyperkalemia, chronic anemia unknown etiology Plan: []Admit to ICU Definitive disposition and diagnosis as appropriate pending reevaluation and review of above. head Pain Score (Numeric/FACES): 10 - Related Data Allergies Allergy/AdvReac Type Severity Reaction Status Date / Time No Known Allergies Allergy Verified 01/30/17 06:57 Home Meds: Home Meds Carvedilol 3.125 mg PO BIDMEALS 01/14/17 [History] Clopidogrel [Plavix] 75 mg PO DAILY 01/14/17 [History] Docusate Sodium 100 mg PO BID 01/14/17 [History] Isosorbide Mononitrate [Isosorbide Mononitrate ER] 30 mg PO DAILY 01/14/17 [ History] Nitroglycerin 0.4 mg SL Q5M PRN 01/14/17 [History] Pantoprazole [ProTONIX] 40 mg PO ACBREAKFAST 01/14/17 [History] Ranolazine [Ranexa] 500 mg PO BID 01/14/17 [History] Tamsulosin HCl [Flomax] 0.4 mg PO DAILY 01/14/17 [History] Torsemide 40 mg PO DAILY 01/14/17 [History] amLODIPine [Norvasc] 5 mg PO DAILY 01/14/17 [History] atorvaSTATin [Lipitor] 40 mg PO DAILY 01/14/17 [History] levETIRAcetam [Levetiracetam] 250 mg PO BID 01/14/17 [History] Aspirin 81 mg PO DAILY 01/30/17 [History] Gabapentin [Neurontin] 300 mg PO BID 01/30/17 [History] Insulin NPH Hum/Reg Insulin Hm [Humulin 70-30 Vial] 25 units INJECT BID [History] Past Medical History HEENT History: Reports: Epistaxis Other HEENT History: duval's esophagus; Sick Sinus syndrome Cardiovascular History: Reports: High Cholesterol, Hypertension, Other (See Below) Other Cardiovascular History: too unstable for stent placement, refused twice ( 80% blockage); heart attack in September 2016; angioplasty Respiratory History: Reports: None Gastrointestinal History: Reports: Other (See Below) Other Gastrointestinal History: "bad liver"; ALEXSANDER and CKD; hyperkalemia Genitourinary History: Reports: Renal Disease Musculoskeletal History: Reports: Other (See Below) Other Musculoskeletal History: uses cane Neurological History: Reports: Seizure Endocrine/Metabolic History: Reports: Diabetes, Type I Other Endocrine/Metabolic History: FSBS checks daily Hematologic History: Reports: None Oncologic (Cancer) History: Reports: None Dermatologic History: Reports: None Other Dermatologic History: local edema - Infectious Disease History Infectious Disease History: Reports: None - Past Surgical History Head Surgeries/Procedures: Reports: None HEENT Surgical History: Reports: None Cardiovascular Surgical History: Reports: Pacer Other Cardiovascular Surgeries/Procedures: daughter states pacer has not worked for 4 years now GI Surgical History: Reports: Colonoscopy Other Musculoskeletal Surgeries/Procedures:: spine surgery Social & Family History - Family History Family Medical History: Noncontributory Cardiac: Reports: Hypertension Endocrine/Metabolic: Reports: Diabetes, Type I - Tobacco Use Smoking Status *Q: Never Smoker Used Tobacco, but Quit: No Second Hand Smoke Exposure: No - Caffeine Use Caffeine Use: Reports: Coffee, Soda Caffeine Use Comment: 1-2drinks/day - Recreational Drug Use Recreational Drug Use: No ED ROS GENERAL - Review of Systems Review Of Systems: See Below (See history of present illness) ED EXAM, HEAD INJURY - Physical Exam Exam: See Below (See history of present illness) Course - Vital Signs Last Recorded V/S: Last Vital Signs Temp 36.2 C 01/30/17 10:00 Pulse 69 01/30/17 09:02 Resp 14 01/30/17 13:00 BP 98/53 L 01/30/17 13:00 Pulse Ox 100 01/30/17 13:00 - Orders/Labs/Meds Orders: Active Orders 24 hr Category Date Time Status RT Aerosol Therapy [RC] ASDIRECTED Care 01/30/17 07:56 Active Cervical Spine wo Cont [CT] Stat Exams 01/30/17 07:12 Taken Chest 1V Frontal [CR] Stat Exams 01/30/17 08:12 Taken Head wo Cont [CT] Stat Exams 01/30/17 07:12 Taken Sodium Chloride 0.9% [Saline Flush] Med 01/30/17 07:12 Active 10 ml FLUSH ASDIRECTED PRN Sodium Chloride 0.9% [Saline Flush] Med 01/30/17 07:12 Active 2.5 ml FLUSH ASDIRECTED PRN Saline Lock Insert [OM.PC] Stat Oth 01/30/17 07:12 Ordered Medication Orders Acetaminophen (Tylenol) 650 mg PO Q4H PRN PRN Reason: Pain (Mild 1-3)/fever Aspirin (Aspirin) 81 mg PO DAILY [facility] Atorvastatin Calcium (Lipitor) 40 mg PO DAILY [facility] Bisacodyl (Dulcolax) 5 mg PO DAILY PRN PRN Reason: Constipation Carvedilol (Coreg) 3.125 mg PO BIDMEALS [facility] Clopidogrel Bisulfate (Plavix) 75 mg PO DAILY [facility] Docusate Sodium (Colace) 100 mg PO BID [facility] Gabapentin (Neurontin) 300 mg PO BID [facility] Azithromycin 500 mg/ Sodium (Chloride) 250 mls @ 250 mls/hr IV Q24H [facility] Last Admin: 01/30/17 11:38 Dose: 250 mls/hr Piperacillin Sod/Tazobactam (Sod 2.25 gm/ Sodium Chloride) 50 mls @ 100 mls/hr IV Q6H [facility] Last Admin: 01/30/17 12:50 Dose: 100 mls/hr Sodium Chloride (Normal Saline) 1,000 mls @ 125 mls/hr IV ASDIRECTED [facility] Last Admin: 01/30/17 11:50 Dose: 125 mls/hr Insulin Aspart (Novolog) 0 unit SUBCUT ACBED [facility] PRN Reason: Protocol Last Admin: 01/30/17 11:31 Dose: Not Given Admin: 01/30/17 11:31 Dose: Not Given Isosorbide Mononitrate (Imdur) 30 mg PO DAILY [facility] Levetiracetam (Keppra) 250 mg PO BID [facility] Morphine Sulfate (Morphine) 2 mg IVPUSH Q2H PRN PRN Reason: Pain (severe 7-10) Stop: 01/31/17 11:08 Ondansetron HCl (Zofran) 4 mg IVPUSH Q4H PRN PRN Reason: Nausea Pantoprazole Sodium (Protonix) 40 mg PO ACBREAKFAST [facility] Ranolazine (Ranexa) 500 mg PO BID [facility] Sodium Chloride (Saline Flush) 10 ml FLUSH ASDIRECTED PRN PRN Reason: Keep Vein Open Sodium Chloride (Saline Flush) 2.5 ml FLUSH ASDIRECTED PRN PRN Reason: Keep Vein Open Sodium Polystyrene Sulfonate (Kayexalate) 15 gm PO Q6H [facility] Stop: 01/31/17 02:00 Last Admin: 01/30/17 13:21 Dose: 15 gm Tamsulosin HCl (Flomax) 0.4 mg PO DAILY [facility] Temazepam (Restoril) 15 mg PO BEDTIME PRN PRN Reason: Sleep Vancomycin HCl (Pharmacy To Dose - Vancomycin) 1 dose .XX ASDIRECTED [facility] Labs: Laboratory Tests 01/30/17 01/30/17 01/30/17 Range/Units 07:21 07:21 07:21 WBC 5.72 (4.0-11.0) K/uL RBC 2.75 L (4.50-5.90) M/uL Hgb 8.2 L (13.0-17.0) g/dL Hct 25.7 L (38.0-50.0) % MCV 93.5 (80.0-98.0) fL MCH 29.8 (27.0-32.0) pg MCHC 31.9 (31.0-37.0) g/dL RDW Std Deviation 62.7 H (28.0-62.0) fl RDW Coeff of Mateus 18 H (11.0-15.0) % Plt Count 136 L (150-400) K/uL MPV 9.60 (7.40-12.00) fL Neut % (Auto) 67.5 (48.0-80.0) % Lymph % (Auto) 11.9 L (16.0-40.0) % Wood % (Auto) 7.7 (0.0-15.0) % Eos % (Auto) 12.6 H (0.0-7.0) % Baso % (Auto) 0.3 (0.0-1.5) % Neut # (Auto) 3.9 (1.4-5.7) K/uL Lymph # (Auto) 0.7 (0.6-2.4) K/uL Wood # (Auto) 0.4 (0.0-0.8) K/uL Eos # (Auto) 0.7 (0.0-0.7) K/uL Baso # (Auto) 0.0 (0.0-0.1) K/uL Nucleated RBC % 0.0 /100WBC Nucleated RBCs # 0 K/uL Sodium 133 L (136-146) mmol/L Potassium 7.2 H* (3.5-5.1) mmol/L Chloride 97 L (98-110) mmol/L Carbon Dioxide 30 (21-31) mmol/L BUN 87 H (6.0-23.0) mg/dL Creatinine 4.7 H (0.6-1.5) mg/dL Est Cr Clr Drug Dosing 10.24 mL/min Estimated GFR (MDRD) 12.2 ml/min Glucose 97 (60-110) mg/dL Calcium 8.8 (8.8-10.8) mg/dL Total Bilirubin 0.3 (0.1-1.5) mg/dL AST 15 (5-40) IU/L ALT 10 (8-54) IU/L Alkaline Phosphatase 123 (40-150) Troponin I < 0.10 (0.0-0.29) NG/ML Total Protein 7.5 (6.0-8.0) g/dL Albumin 3.7 (3.4-4.8) g/dL Globulin 3.8 H (2.0-3.5) g/dL Albumin/Globulin Ratio 1.0 L (1.3-2.8) Urine Color Urine Appearance Urine pH (5.0-8.0) Ur Specific Perry (1.001-1.035) Urine Protein (NEGATIVE) mg/dL Urine Glucose (UA) (NEGATIVE) mg/dL Urine Ketones (NEGATIVE) mg/dL Urine Occult Blood (NEGATIVE) Urine Nitrite (NEGATIVE) Urine Bilirubin (NEGATIVE) Urine Urobilinogen (<2.0) EU/dL Ur Leukocyte Esterase (NEGATIVE) Urine RBC (0-2/HPF) Urine WBC (0-5/HPF) Ur Epithelial Cells (NONE-FEW) Urine Bacteria (NEGATIVE) Hyaline Casts (0-2/LPF) Blood Type Antibody Screen 01/30/17 01/30/17 Range/Units 07:21 08:30 WBC (4.0-11.0) K/uL RBC (4.50-5.90) M/uL Hgb (13.0-17.0) g/dL Hct (38.0-50.0) % MCV (80.0-98.0) fL MCH (27.0-32.0) pg MCHC (31.0-37.0) g/dL RDW Std Deviation (28.0-62.0) fl RDW Coeff of Mateus (11.0-15.0) % Plt Count (150-400) K/uL MPV (7.40-12.00) fL Neut % (Auto) (48.0-80.0) % Lymph % (Auto) (16.0-40.0) % Wood % (Auto) (0.0-15.0) % Eos % (Auto) (0.0-7.0) % Baso % (Auto) (0.0-1.5) % Neut # (Auto) (1.4-5.7) K/uL Lymph # (Auto) (0.6-2.4) K/uL Wood # (Auto) (0.0-0.8) K/uL Eos # (Auto) (0.0-0.7) K/uL Baso # (Auto) (0.0-0.1) K/uL Nucleated RBC % /100WBC Nucleated RBCs # K/uL Sodium (136-146) mmol/L Potassium (3.5-5.1) mmol/L Chloride (98-110) mmol/L Carbon Dioxide (21-31) mmol/L BUN (6.0-23.0) mg/dL Creatinine (0.6-1.5) mg/dL Est Cr Clr Drug Dosing mL/min Estimated GFR (MDRD) ml/min Glucose (60-110) mg/dL Calcium (8.8-10.8) mg/dL Total Bilirubin (0.1-1.5) mg/dL AST (5-40) IU/L ALT (8-54) IU/L Alkaline Phosphatase (40-150) Troponin I (0.0-0.29) NG/ML Total Protein (6.0-8.0) g/dL Albumin (3.4-4.8) g/dL Globulin (2.0-3.5) g/dL Albumin/Globulin Ratio (1.3-2.8) Urine Color YELLOW Urine Appearance CLEAR Urine pH 5.0 (5.0-8.0) Ur Specific Perry 1.020 (1.001-1.035) Urine Protein NEGATIVE (NEGATIVE) mg/dL Urine Glucose (UA) NEGATIVE (NEGATIVE) mg/dL Urine Ketones NEGATIVE (NEGATIVE) mg/dL Urine Occult Blood MODERATE (NEGATIVE) Urine Nitrite NEGATIVE (NEGATIVE) Urine Bilirubin NEGATIVE (NEGATIVE) Urine Urobilinogen 0.2 (<2.0) EU/dL Ur Leukocyte Esterase NEGATIVE (NEGATIVE) Urine RBC 3-5 (0-2/HPF) Urine WBC 0-2 (0-5/HPF) Ur Epithelial Cells RARE (NONE-FEW) Urine Bacteria 1+ H (NEGATIVE) Hyaline Casts 8-12 (0-2/LPF) Blood Type A POSITIVE Antibody Screen NEGATIVE Meds: Medications Generic Name Dose Route Start Last Admin Trade Name Freq PRN Reason Stop Dose Admin Acetaminophen 650 mg 01/30/17 11:06 Tylenol PO Q4H PRN Pain (Mild 1-3)/fever Aspirin 81 mg 01/31/17 09:00 Aspirin PO DAILY [facility] Atorvastatin Calcium 40 mg 01/31/17 09:00 Lipitor PO DAILY [facility] Bisacodyl 5 mg 01/30/17 11:06 Dulcolax PO DAILY PRN Constipation Carvedilol 3.125 mg 01/30/17 17:00 Coreg PO BIDMEALS [facility] Clopidogrel Bisulfate 75 mg 01/31/17 09:00 Plavix PO DAILY [facility] Docusate Sodium 100 mg 01/30/17 21:00 Colace PO BID [facility] Gabapentin 300 mg 01/30/17 21:00 Neurontin PO BID [facility] Azithromycin 500 mg/ Sodium 250 mls @ 250 mls/hr 01/30/17 11:20 01/30/17 11: 38 Chloride IV 250 mls/hr Q24H [facility] Administration Piperacillin Sod/Tazobactam 50 mls @ 100 mls/hr 01/30/17 12:30 01/30/17 12:50 Sod 2.25 gm/ Sodium Chloride IV 100 mls/hr Q6H [facility] Administration Sodium Chloride 1,000 mls @ 125 mls/hr 01/30/17 11:45 01/30/17 11:50 Normal Saline IV 125 mls/hr ASDIRECTED [facility] Administration Insulin Aspart 0 unit 01/30/17 11:15 01/30/17 11:31 Novolog SUBCUT Not Given ACBED [facility] Protocol Isosorbide Mononitrate 30 mg 01/31/17 09:00 Imdur PO DAILY [facility] Levetiracetam 250 mg 01/30/17 21:00 Keppra PO BID [facility] Morphine Sulfate 2 mg 01/30/17 11:06 Morphine IVPUSH 01/31/17 11:08 Q2H PRN Pain (severe 7-10) Ondansetron HCl 4 mg 01/30/17 11:06 Zofran IVPUSH Q4H PRN Nausea Pantoprazole Sodium 40 mg 01/31/17 07:30 Protonix PO ACBREAKFAST [facility] Ranolazine 500 mg 01/30/17 21:00 Ranexa PO BID [facility] Sodium Chloride 10 ml 01/30/17 07:12 Saline Flush FLUSH ASDIRECTED PRN Keep Vein Open Sodium Chloride 2.5 ml 01/30/17 07:12 Saline Flush FLUSH ASDIRECTED PRN Keep Vein Open Sodium Polystyrene Sulfonate 15 gm 01/30/17 13:15 01/30/17 13:21 Kayexalate PO 01/31/17 02:00 15 gm Q6H [facility] Administration Tamsulosin HCl 0.4 mg 01/31/17 09:00 Flomax PO DAILY [facility] Temazepam 15 mg 01/30/17 11:06 Restoril PO BEDTIME PRN Sleep Vancomycin HCl 1 dose 01/30/17 11:15 Pharmacy To Dose - Vancomycin .XX ASDIRECTED [facility] Discontinued Medications Generic Name Dose Route Start Last Admin Trade Name Freq PRN Reason Stop Dose Admin Albuterol 2.5 mg 01/30/17 07:55 01/30/17 08:06 Proventil Neb Soln NEB 01/30/17 07:56 2.5 mg ONETIME ONE Administration Bacitracin 1 dose 01/30/17 08:48 01/30/17 08:56 Bacitracin Oint 1 Gm TOP 01/30/17 08:49 1 dose ONETIME ONE Administration Dextrose/Water 50 ml 01/30/17 07:57 01/30/17 08:25 Dextrose 50% In Water IVPUSH 01/30/17 07:58 50 ml ONETIME ONE Administration Dextrose/Water 50 ml 01/30/17 13:12 01/30/17 13:23 Dextrose 50% In Water IVPUSH 01/30/17 13:13 50 ml ONETIME ONE Administration Docusate Sodium 100 mg 01/30/17 21:00 Colace PO BID [facility] Vancomycin HCl 1 gm/ Sodium 250 mls @ 166.667 mls/hr 01/30/17 13:00 Chloride IV Q24H [facility] Insulin Human Regular 10 unit 01/30/17 07:56 01/30/17 08:19 Novolin R IVPUSH 01/30/17 07:57 10 units ONETIME ONE Administration Protocol Insulin Human Regular 10 unit 01/30/17 13:12 01/30/17 13:24 Novolin R IVPUSH 01/30/17 13:13 10 units ONETIME ONE Administration Protocol Lidocaine HCl 20 ml 01/30/17 08:39 01/30/17 08:49 Xylocaine 1% INJECT 01/30/17 08:40 20 ml ONETIME ONE Administration Departure - Departure Time of Disposition: 10:00 Disposition: Admitted As Inpatient 66 Condition: Fair Clinical Impression: Hyperkalemia, Chronic anemia Scalp laceration Qualifiers: Encounter type: initial encounter Qualified Code(s): S01.01XA - Laceration without foreign body of scalp, initial encounter - Discharge Information - My Orders Last 24 Hours: My Active Orders 01/30/17 07:12 Cervical Spine wo Cont [CT] Stat Head wo Cont [CT] Stat Sodium Chloride 0.9% [Saline Flush] 10 ml FLUSH ASDIRECTED PRN Sodium Chloride 0.9% [Saline Flush] 2.5 ml FLUSH ASDIRECTED PRN Saline Lock Insert [OM.PC] Stat 01/30/17 07:56 RT Aerosol Therapy [RC] ASDIRECTED 01/30/17 08:12 Chest 1V Frontal [CR] Stat - Assessment/Plan Last 24 Hours: My Active Orders 01/30/17 07:12 Cervical Spine wo Cont [CT] Stat Head wo Cont [CT] Stat Sodium Chloride 0.9% [Saline Flush] 10 ml FLUSH ASDIRECTED PRN Sodium Chloride 0.9% [Saline Flush] 2.5 ml FLUSH ASDIRECTED PRN Saline Lock Insert [OM.PC] Stat 01/30/17 07:56 RT Aerosol Therapy [RC] ASDIRECTED 01/30/17 08:12 Chest 1V Frontal [CR] Stat
[2017-01-30] MEDS ORDERED: Lidocaine 1% 20 ML MDV INJECT ONE (08:39)
[2017-01-30] MEDS ORDERED: Bacitracin Oint 1 GM U/D Packet TOP ONE (08:48)
--- NOTE | 2017-01-30 10:55 | PCM.HP ---
H&P History of Present Illness - General Date of Service: 01/30/17 Admit Problem/Dx: Admission Diagnosis/Problem Admission Diagnosis/Problem Hyperkalemia Source of Information: Family, Provider, RN - History of Present Illness Initial Comments - Free Text/Narative: He was discharged from the hospital on January 20 after being treated for pneumonia. He presented to the hospital ED today with complaint of fall with laceration to the back of the head. He has worsening gait instability. NO prominent cough but transient dyspnea this am ( but his home oxygen had accidentally come off) He was noted in the ED to have acute on chronic kidney failure with hyperkalemia. head Pain Score (Numeric/FACES): 8 - Related Data Allergies/Adverse Reactions: Allergies Allergy/AdvReac Type Severity Reaction Status Date / Time No Known Allergies Allergy Verified 01/30/17 06:57 Home Medications: Home Meds Carvedilol 3.125 mg PO BIDMEALS 01/14/17 [History] Clopidogrel [Plavix] 75 mg PO DAILY 01/14/17 [History] Docusate Sodium 100 mg PO BID 01/14/17 [History] Isosorbide Mononitrate [Isosorbide Mononitrate ER] 30 mg PO DAILY 01/14/17 [ History] Nitroglycerin 0.4 mg SL Q5M PRN 01/14/17 [History] Pantoprazole [ProTONIX] 40 mg PO ACBREAKFAST 01/14/17 [History] Ranolazine [Ranexa] 500 mg PO BID 01/14/17 [History] Tamsulosin HCl [Flomax] 0.4 mg PO DAILY 01/14/17 [History] Torsemide 40 mg PO DAILY 01/14/17 [History] amLODIPine [Norvasc] 5 mg PO DAILY 01/14/17 [History] atorvaSTATin [Lipitor] 40 mg PO DAILY 01/14/17 [History] levETIRAcetam [Levetiracetam] 250 mg PO BID 01/14/17 [History] Aspirin 81 mg PO DAILY 01/30/17 [History] Gabapentin [Neurontin] 300 mg PO BID 01/30/17 [History] Insulin NPH Hum/Reg Insulin Hm [Humulin 70-30 Vial] 25 units INJECT BID [History] Past Medical History HEENT History: Reports: Epistaxis Other HEENT History: duval's esophagus; Sick Sinus syndrome Cardiovascular History: Reports: CAD, High Cholesterol, Hypertension, Other ( See Below) Other Cardiovascular History: too unstable for stent placement, refused twice ( 80% blockage); heart attack in September 2016; angioplasty Respiratory History: Reports: None Gastrointestinal History: Reports: Other (See Below) Other Gastrointestinal History: "bad liver"; ALEXSANDER and CKD; hyperkalemia Genitourinary History: Reports: Renal Disease Musculoskeletal History: Reports: Other (See Below) Other Musculoskeletal History: uses cane Neurological History: Reports: Seizure (family reports history of brief myoclonic jerks periodically; no clear history of generalized seizures.), Other (See Below) (family reports he had a "small stroke" in the past with disequilibrium as a suspected consequence; family reports a history of dementia) Endocrine/Metabolic History: Reports: Diabetes, Type II Other Endocrine/Metabolic History: FSBS checks daily Hematologic History: Reports: None Oncologic (Cancer) History: Reports: None Dermatologic History: Reports: None Other Dermatologic History: local edema - Infectious Disease History Infectious Disease History: Reports: None - Past Surgical History Head Surgeries/Procedures: Reports: None HEENT Surgical History: Reports: None Cardiovascular Surgical History: Reports: Pacer Other Cardiovascular Surgeries/Procedures: daughter states pacer has not worked for 4 years now GI Surgical History: Reports: Colonoscopy Other Musculoskeletal Surgeries/Procedures:: spine surgery Social & Family History - Family History Family Medical History: Noncontributory Cardiac: Reports: Hypertension Endocrine/Metabolic: Reports: Diabetes, Type I - Tobacco Use Smoking Status *Q: Never Smoker Used Tobacco, but Quit: No Second Hand Smoke Exposure: No - Caffeine Use Caffeine Use: Reports: Coffee, Soda Caffeine Use Comment: 1-2drinks/day - Alcohol Use Alcohol Use in Last Twelve Months: No - Recreational Drug Use Recreational Drug Use: No H&P Review of Systems - Review of Systems: Review Of Systems: See Below General: Denies: Fever, Chills Pulmonary: Reports: Other (no prominent cough; recent hospitalization for pneumonia) Cardiovascular: Denies: Chest Pain Gastrointestinal: Denies: Abdominal Pain, Black Stool, Bloody Stool Genitourinary: Denies: Hematuria Skin: Denies: Cyanosis Psychiatric: Reports: Confusion (chronic dementia) Review of Systems Comment:: impaired gait; frequent falls eating well usually uses a cane or a walker most recently uses home oxygen he moved last month from [place] to [place] his primary physician is Dr Jeny Bloom he reportedly had a heme positive stool last admission. Exam - Exam Exam: See Below - Vital Signs Vital Signs: Last Vital Signs Temp 97.1 F 01/30/17 10:00 Pulse 69 01/30/17 09:02 Resp 20 01/30/17 10:00 BP 115/47 L 01/30/17 10:00 Pulse Ox 100 01/30/17 10:00 Weight: 79.6 kg - Exam Quality Assessment: Supplemental Oxygen General: Sedated HEENT: Conjunctiva Clear, Other (scalp laceration posterior scalp has been closed; no active bleeding). No: Abnormal Pupils Neck: Trachea Midline Lungs: Other (rhonchi faint over left base). No: Clear to Auscultation Cardiovascular: Regular Rate, Regular Rhythm Abdomen: Soft. No: Distention, Tenderness Rectal (Males) Exam: Deferred Extremities: Other (normal capillary refill toes ). No: Cyanosis, Edema Neurological: No: Normal Speech (says a few words that are understandable; follow simple commands) Neuro Extensive - Motor, Sensory, Reflexes: No: Facial palsy (L), Facial Palsy ( R) - Patient Data Lab Results Last 24 hrs: Laboratory Results - last 24 hr 01/30/17 Range/Units 10:21 POC Glucose 82 (60-110) mg/dL Result Diagrams: 01/30/17 07:21 01/30/17 07:21 *Q Meaningful Use (ADM) - VTE *Q VTE Criteria *Q: - Stroke *Q Stroke Criteria *Q: - AMI *Q AMI Criteria *Q: - Problem List (1) Hospital-acquired pneumonia SNOMED Code(s): 035772291 ICD Code: J18.9 - PNEUMONIA, UNSPECIFIED ORGANISM Status: Acute Current Visit: Yes (2) Acute renal failure SNOMED Code(s): 83443362 ICD Code: N17.9 - ACUTE KIDNEY FAILURE, UNSPECIFIED Status: Acute Current Visit: Yes (3) Chronic kidney disease SNOMED Code(s): 713411248 ICD Code: N18.9 - CHRONIC KIDNEY DISEASE, UNSPECIFIED Status: Acute Current Visit: Yes (4) History of coronary artery disease SNOMED Code(s): 615523287 ICD Code: Z86.79 - PERSONAL HISTORY OF OTHER DISEASES OF THE CIRCULATORY SYSTEM Status: Acute Current Visit: Yes (5) Diabetes mellitus SNOMED Code(s): 83058083 ICD Code: E11.9 - TYPE 2 DIABETES MELLITUS WITHOUT COMPLICATIONS Status: Acute Current Visit: Yes (6) Hyperkalemia SNOMED Code(s): 22536069 ICD Code: E87.5 - HYPERKALEMIA Status: Acute Current Visit: Yes (7) Heme positive stool SNOMED Code(s): 66255770, 365087052 ICD Code: R19.5 - OTHER FECAL ABNORMALITIES Status: Acute Current Visit: Yes (8) Anemia SNOMED Code(s): 350512241 ICD Code: D64.9 - ANEMIA, UNSPECIFIED Status: Acute Current Visit: Yes Problem List Initiated/Reviewed/Updated: Yes Orders Last 24hrs: Medication Orders Sodium Chloride (Saline Flush) 10 ml FLUSH ASDIRECTED PRN PRN Reason: Keep Vein Open Sodium Chloride (Saline Flush) 2.5 ml FLUSH ASDIRECTED PRN PRN Reason: Keep Vein Open Assessment/Plan Comment:: CXR shows possible retrocardiac infiltrate I reviewed CT of had and C spine which are negative for acute injury broad spectrum antibiotics Full code status at this time but family and he do not want fci life support monitor electrolytes closely assess cardiac function by echocardiogram hold bumex for now Eliezer Craven MD
[2017-01-30] MEDS ORDERED: Bisacodyl 5 MG Tab PO PRN (11:06)
[2017-01-30] MEDS ORDERED: Acetaminophen 325 MG Tab PO PRN (11:06)
[2017-01-30] MEDS ORDERED: Morphine 2 MG/ML Syringe IVPUSH PRN (11:06)
[2017-01-30] MEDS ORDERED: Temazepam 15 MG Cap PO PRN (11:06)
[2017-01-30] MEDS ORDERED: Ondansetron 4 MG/2 ML SDV IVPUSH PRN (11:06)
[2017-01-30] MEDS ORDERED: Azithromycin 500 MG in Sodium Chloride 0.9% 250 ML IV SCH (11:20)
[2017-01-30] MEDS: Insulin Aspart 100 Units/ML 3 ML Pen SUBCUT SCH (11:31)
[2017-01-30] MEDS ORDERED: Sodium Chloride 0.9% 1,000 ML IV SCH (11:45)
[2017-01-30] MEDS ORDERED: Piperacillin/Tazobactam 2.25 GM in Sodium Chloride 0.9% 50 ML IV SCH (12:30)
[2017-01-30] MEDS ORDERED: Sodium Polystyrene Sulfonate 15 GM/60 ML Susp 60 ML Bot PO SCH (13:15)
--- NOTE | 2017-01-30 14:44 | PCM.DCSUM1 ---
Discharge Summary - Hospital Course Brief History: he was admitted from our emergency department after a fall at home. A posterior scalp laceration was closed in the ED. In the Ed he was noted to have acute on chronic renal failure with serum creatinine 4.8 and K level of 7.2. - Discharge Data Discharge Date: 01/30/17 Discharge Disposition: DC/Tfer to [facility] 02 Condition: Fair - Discharge Diagnosis/Problem(s) (1) Hospital-acquired pneumonia SNOMED Code(s): 652209300 ICD Code: J18.9 - PNEUMONIA, UNSPECIFIED ORGANISM Status: Acute Current Visit: Yes (2) Acute renal failure SNOMED Code(s): 15464768 ICD Code: N17.9 - ACUTE KIDNEY FAILURE, UNSPECIFIED Status: Acute Current Visit: Yes (3) Chronic kidney disease SNOMED Code(s): 176555121 ICD Code: N18.9 - CHRONIC KIDNEY DISEASE, UNSPECIFIED Status: Acute Current Visit: Yes (4) History of coronary artery disease SNOMED Code(s): 296697623 ICD Code: Z86.79 - PERSONAL HISTORY OF OTHER DISEASES OF THE CIRCULATORY SYSTEM Status: Acute Current Visit: Yes (5) Diabetes mellitus SNOMED Code(s): 01252245 ICD Code: E11.9 - TYPE 2 DIABETES MELLITUS WITHOUT COMPLICATIONS Status: Acute Current Visit: Yes (6) Hyperkalemia SNOMED Code(s): 89811182 ICD Code: E87.5 - HYPERKALEMIA Status: Acute Current Visit: Yes (7) Heme positive stool SNOMED Code(s): 67669890, 382100431 ICD Code: R19.5 - OTHER FECAL ABNORMALITIES Status: Acute Current Visit: Yes (8) Anemia SNOMED Code(s): 164919878 ICD Code: D64.9 - ANEMIA, UNSPECIFIED Status: Acute Current Visit: Yes - Patient Summary/Data Consults: Consultations 01/30/17 11:13 Consult to Pharmacy [CONS] Routine Hospital Course: he was also noted to have a possible left retrocardiac infiltrate on PCXR. His loop diuretic was held. His hyperkalemia was treated with intravenous dextrose and insulin, kayexalate and inhaled albuterol. His serum creatinine and potassium have decreased to 4.2 and 6.6 respectively before transfer. Zosyn and vancomycin were ordered for his hospital acquired pneumonia After further discusssion with EICU top cleaner extension work director , and after discussion with family members, it was decided to transfer the patient to a higher level of care. I spoke with Dr Moore and Dr Lopez in the ER [facility] and with Dr Dominguez , [facility]. Patient will be transferred from our facility to the ED at [facility]. - Discharge Plan Home Medications: Home Meds Carvedilol 3.125 mg PO BIDMEALS 01/14/17 [History] Clopidogrel [Plavix] 75 mg PO DAILY 01/14/17 [History] Docusate Sodium 100 mg PO BID 01/14/17 [History] Isosorbide Mononitrate [Isosorbide Mononitrate ER] 30 mg PO DAILY 01/14/17 [ History] Nitroglycerin 0.4 mg SL Q5M PRN 01/14/17 [History] Pantoprazole [ProTONIX] 40 mg PO ACBREAKFAST 01/14/17 [History] Ranolazine [Ranexa] 500 mg PO BID 01/14/17 [History] Tamsulosin HCl [Flomax] 0.4 mg PO DAILY 01/14/17 [History] Torsemide 40 mg PO DAILY 01/14/17 [History] amLODIPine [Norvasc] 5 mg PO DAILY 01/14/17 [History] atorvaSTATin [Lipitor] 40 mg PO DAILY 01/14/17 [History] levETIRAcetam [Levetiracetam] 250 mg PO BID 01/14/17 [History] Aspirin 81 mg PO DAILY 01/30/17 [History] Gabapentin [Neurontin] 300 mg PO BID 01/30/17 [History] Insulin NPH Hum/Reg Insulin Hm [Humulin 70-30 Vial] 25 units INJECT BID [History] - Discharge Summary/Plan Comment DC Time >30 min.: Yes - Patient Data Vitals - Most Recent: Last Vital Signs Temp 97.1 F 01/30/17 10:00 Pulse 69 01/30/17 09:02 Resp 13 01/30/17 14:00 BP 108/48 L 01/30/17 14:00 Pulse Ox 98 01/30/17 14:00 Weight - Most Recent: 79.6 kg I&O - Last 24 hours: Intake & Output 01/29/17 01/30/1701/30/17 22:59 06:59 14:59 Intake Total 1300 Balance 1300 Lab Results - Last 24 hrs: Laboratory Results - last 24 hr 01/30/17 01/30/17 01/30/17 Range/Units 10:21 11:25 11:25 Sodium 131 L (136-146) mmol/L Potassium 6.6 H (3.5-5.1) mmol/L Chloride 98 (98-110) mmol/L Carbon Dioxide 27 (21-31) mmol/L BUN 84 H (6.0-23.0) mg/dL Creatinine 4.4 H (0.6-1.5) mg/dL Est Cr Clr Drug Dosing 10.94 mL/min Estimated GFR (MDRD) 13.1 ml/min Glucose 66 (60-110) mg/dL POC Glucose 82 (60-110) mg/dL Calcium 8.4 L (8.8-10.8) mg/dL Phosphorus 4.8 H (2.4-4.7) mg/dL Magnesium 2.8 H (1.5-2.3) mEq/L Med Orders - Current: Current Medications Acetaminophen (Tylenol) 650 mg PO Q4H PRN PRN Reason: Pain (Mild 1-3)/fever Aspirin (Aspirin) 81 mg PO DAILY [facility] Atorvastatin Calcium (Lipitor) 40 mg PO DAILY [facility] Bisacodyl (Dulcolax) 5 mg PO DAILY PRN PRN Reason: Constipation Carvedilol (Coreg) 3.125 mg PO BIDMEALS [facility] Clopidogrel Bisulfate (Plavix) 75 mg PO DAILY [facility] Docusate Sodium (Colace) 100 mg PO BID [facility] Gabapentin (Neurontin) 300 mg PO BID [facility] Azithromycin 500 mg/ Sodium (Chloride) 250 mls @ 250 mls/hr IV Q24H [facility] Last Admin: 01/30/17 11:38 Dose: 250 mls/hr Piperacillin Sod/Tazobactam (Sod 2.25 gm/ Sodium Chloride) 50 mls @ 100 mls/hr IV Q6H [facility] Last Admin: 01/30/17 12:50 Dose: 100 mls/hr Sodium Chloride (Normal Saline) 1,000 mls @ 125 mls/hr IV ASDIRECTED [facility] Last Admin: 01/30/17 11:50 Dose: 125 mls/hr Insulin Aspart (Novolog) 0 unit SUBCUT ACBED [facility] PRN Reason: Protocol Last Admin: 01/30/17 11:31 Dose: Not Given Isosorbide Mononitrate (Imdur) 30 mg PO DAILY [facility] Levetiracetam (Keppra) 250 mg PO BID [facility] Morphine Sulfate (Morphine) 2 mg IVPUSH Q2H PRN PRN Reason: Pain (severe 7-10) Stop: 01/31/17 11:08 Ondansetron HCl (Zofran) 4 mg IVPUSH Q4H PRN PRN Reason: Nausea Pantoprazole Sodium (Protonix) 40 mg PO ACBREAKFAST [facility] Ranolazine (Ranexa) 500 mg PO BID [facility] Sodium Chloride (Saline Flush) 10 ml FLUSH ASDIRECTED PRN PRN Reason: Keep Vein Open Sodium Chloride (Saline Flush) 2.5 ml FLUSH ASDIRECTED PRN PRN Reason: Keep Vein Open Sodium Polystyrene Sulfonate (Kayexalate) 15 gm PO Q6H [facility] Stop: 01/31/17 02:00 Last Admin: 01/30/17 13:21 Dose: 15 gm Tamsulosin HCl (Flomax) 0.4 mg PO DAILY [facility] Temazepam (Restoril) 15 mg PO BEDTIME PRN PRN Reason: Sleep Vancomycin HCl (Pharmacy To Dose - Vancomycin) 1 dose .XX ASDIRECTED [facility] Discontinued Medications Albuterol (Proventil Neb Soln) 2.5 mg NEB ONETIME ONE Stop: 01/30/17 07:56 Last Admin: 01/30/17 08:06 Dose: 2.5 mg Bacitracin (Bacitracin Oint 1 Gm) 1 dose TOP ONETIME ONE Stop: 01/30/17 08:49 Last Admin: 01/30/17 08:56 Dose: 1 dose Dextrose/Water (Dextrose 50% In Water) 50 ml IVPUSH ONETIME ONE Stop: 01/30/17 07:58 Last Admin: 01/30/17 08:25 Dose: 50 ml Dextrose/Water (Dextrose 50% In Water) 50 ml IVPUSH ONETIME ONE Stop: 01/30/17 13:13 Last Admin: 01/30/17 13:23 Dose: 50 ml Docusate Sodium (Colace) 100 mg PO BID [facility] Vancomycin HCl 1 gm/ Sodium (Chloride) 250 mls @ 166.667 mls/hr IV Q24H [facility] Insulin Human Regular (Novolin R) 10 unit IVPUSH ONETIME ONE PRN Reason: Protocol Stop: 01/30/17 07:57 Last Admin: 01/30/17 08:19 Dose: 10 units Insulin Human Regular (Novolin R) 10 unit IVPUSH ONETIME ONE PRN Reason: Protocol Stop: 01/30/17 13:13 Last Admin: 01/30/17 13:24 Dose: 10 units Lidocaine HCl (Xylocaine 1%) 20 ml INJECT ONETIME ONE Stop: 01/30/17 08:40 Last Admin: 01/30/17 08:49 Dose: 20 ml *Q Meaningful Use (DIS) - VTE *Q VTE Criteria *Q: - Stroke *Q Stroke Criteria *Q: - AMI *Q AMI Criteria *Q:
[2017-01-30 16:13] VITALS: BP 122/52
[2017-01-30] MEDS ORDERED: Carvedilol 3.125 MG Tab PO SCH (17:00)
[2017-01-30] MEDS ORDERED: Docusate Sodium 100 MG Cap PO SCH ×2 (21:00)
[2017-01-30] MEDS ORDERED: levETIRAcetam 500 MG Tab PO SCH (21:00)
[2017-01-30] MEDS ORDERED: Gabapentin 300 MG Cap PO SCH (21:00)
[2017-01-31] MEDS ORDERED: Pantoprazole 40 MG Tab.CR PO SCH (07:30)
[2017-01-31] MEDS ORDERED: atorvaSTATin 40 MG Tab PO SCH (09:00)
[2017-01-31] MEDS ORDERED: Aspirin 81 MG Tab.Chew PO SCH (09:00)
[2017-01-31] MEDS ORDERED: Tamsulosin 0.4 MG Cap.ER PO SCH (09:00)
[2017-01-31] MEDS ORDERED: Clopidogrel 75 MG Tab PO SCH (09:00)
[2017-01-31] MEDS ORDERED: Isosorbide Mononitrate 30 MG Tab.ER PO SCH (09:00)
--- NOTE | 2017-01-31 12:24 | CT ---
EXAM DATE: 01/30/17 PATIENT'S AGE: 76 Patient: MAGGIE WALKER Facility: [place], [place] Site . Site : 1940 Study: CT Head WO CONT [id number]/16/2017 7:38:01 AM Ordering Physician: Boris Johnson Final Report: HISTORY: Fall, hit head. TECHNIQUE: Noncontrast head CT. COMPARISON: 01/16/2017. FINDINGS: There is no acute intracranial hemorrhage. Mild generalized volume loss. Areas of white matter low attenuation are nonspecific but likely reflect sequelae of chronic small vessel ischemic changes as before. There is no mass effect or midline shift. No hydrocephalus. No extra-axial collection or hematoma. No acute skull fracture. Mastoid air cells are clear. Mucosal thickening involving the maxillary, ethmoid and sphenoid sinuses. IMPRESSION: 1. No acute intracranial injury or disease. 2. Mild generalized volume loss and chronic small vessel ischemic changes. Dictated by Cm Ramirez MD @ 01/30/2017 8:11:16 AM Dictated by: Cm Ramirez MD @ 01/30/2017 08:11:22 (Electronic Signature) Report Signed by Proxy. [facility]
--- NOTE | 2017-01-31 12:25 | CR ---
EXAM DATE: 01/30/17 PATIENT'S AGE: 76 Patient: MAGGIE WALKER Facility: [place], [place] Site . Site : 1940 Study: XRay Chest [id number]/16/2017 8:58:36 AM Ordering Physician: Boris Johnson Final Report: HISTORY: Pain, fall. TECHNIQUE: One view of the chest. COMPARISON: 01/16/2017. FINDINGS: Low lung volumes. Heart size is prominent but exaggerated by technique. Heart size stable. Two lead pacer device with leads terminating within the right atrium right ventricle as before. Persistent retrocardiac atelectasis or infiltrate. Right lung appears grossly clear. No pneumothorax. No moderate or large pleural effusion though small pleural effusions would be difficult to exclude on a single frontal view chest radiograph. Prior cervical fusion. IMPRESSION: No significant change. Persistent retrocardiac atelectasis or infiltrate. Dictated by Cm Ramirez MD @ 01/30/2017 9:11:55 AM Dictated by: Cm Ramirez MD @ 01/30/2017 09:12:03 (Electronic Signature) Report Signed by Proxy. [facility]
--- NOTE | 2017-01-31 12:25 | CT ---
EXAM DATE: 01/30/17 PATIENT'S AGE: 76 Patient: MAGGIE WALKER Facility: [place], [place] Site . Site : 1940 Study: CT Spine Cervical WO CONT [id number]/16/2017 7:40:12 AM Ordering Physician: Boris Johnson Final Report: HISTORY: Neck pain, fall. TECHNIQUE: Noncontrast CT cervical spine. COMPARISON: No prior. FINDINGS: There is no acute cervical fracture or acute cervical malalignment. Patient is status post anterior plate and screw and interbody fusion at C5 through C7. There is mature fusion at those levels. The hardware appears intact. Bridging ossification along the anterior aspect of the C7-T1 disc space. Chronic ossification within the soft tissues anterior to the C4-C5 level without bridging of that ossification to the anterior aspect of the C4 vertebral body. Exuberant osteophyte formation about the anterior aspect of the C2-C3 disc space. Chronic hypertrophic change involving the soft tissues posterior to the dens with soft tissue calcification which may relate to CPPD. Severe narrowing of the anterior arch C1-dens articulation. - At C1-C2 level, the hypertrophic changes involving the soft tissues posterior to the dens result in narrowing of the central canal. At C2-C3, the central canal and neural foramina are patent. At C3-C4, central canal and right neural foramina patent. Left neural foramina is stenotic. At C4-C5, shallow disc protrusion with peripheral calcifications mildly effaces the ventral thecal sac. Neural foramina patent. At C5-C6, central canal and neural foramina patent. At C6-C7, central canal and neural foramina patent. At C7-T1, central canal and neural foramina patent. IMPRESSION: 1. No acute cervical fracture or cervical malalignment. 2. Mature fusion at C5 through C7. 3. Degenerative changes. 4. 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 Dictated by Cm Ramirez MD @ 01/30/2017 8:19:18 AM Dictated by: Cm Ramirez MD @ 01/30/2017 08:19:22 (Electronic Signature) Report Signed by Proxy. [facility]
== END 2017-01-30 16:50 | DRG 194 ==
LOC: MW.ED 06:50 → MW.ICU 09:07
PROVIDERS: ADMIT Family Medicine; ATTEND Family Medicine
DX: S01.01XA Laceration without foreign body of scalp, initial encounter (principal); W06.XXXA Fall from bed, initial encounter; Y92.013 Bedroom of single-family (private) house as the place of occurrence of the external cause; J18.9 Pneumonia, unspecified organism; N17.9 Acute kidney failure, unspecified; Y95 Nosocomial condition; I12.9 Hypertensive chronic kidney disease with stage 1 through stage 4 chronic kidney disease, or unspecified chronic kidney disease; N18.9 Chronic kidney disease, unspecified; I25.10 Atherosclerotic heart disease of native coronary artery without angina pectoris; E87.5 Hyperkalemia; R19.5 Other fecal abnormalities; D64.9 Anemia, unspecified; E10.8 Type 1 diabetes mellitus with unspecified complications; K22.70 Barrett's esophagus without dysplasia; Z91.81 History of falling; I49.5 Sick sinus syndrome; Z79.82 Long term (current) use of aspirin; E78.00 Pure hypercholesterolemia, unspecified; I25.2 Old myocardial infarction; G40.909 Epilepsy, unspecified, not intractable, without status epilepticus; E11.9 Type 2 diabetes mellitus without complications; Z79.4 Long term (current) use of insulin; Z79.899 Other long term (current) drug therapy
CPT/HCPCS: 36415; 70450; 71010; 72125; 80053; 81001; 82962; 84484; 85025; 86850; 86900; 86901; 93005; 94664; 96374; 96375; 99285; J1815; J7060; 80048; 83735; 84100; A9270-GY; J0456; J2270; J2543; J7040; J7050